=== PATIENT | male | born 1960 | race African-American/Black ===

== ENCOUNTER 2020-03-11 04:05 | Observation (INO) | payer OTHER ==
[2020-03-11 04:42] LABS: ABSOLUTE BASOPHILS # (AUTO) 0.1 10^3/uL (0.0-0.2); ABSOLUTE EOSINOPHILS # (AUTO) 0.4 10^3/uL (0.0-0.6); ABSOLUTE LYMPHOCYTES (AUTO) 2.8 10^3/uL (0.5-4.7); ABSOLUTE MONOCYTES (AUTO) 0.6 10^3/uL (0.1-1.4); ABSOLUTE NEUT (AUTO) 5.9 10^3/uL (1.7-8.2); BASOPHILS % (AUTO) 0.7 % (0-2); HEMATOCRIT 42.7 % (37.9-51.0); LYMPHOCYTES % (AUTO) 28.8 % (13-45); MEAN CORPUSCULAR HEMOGLOBIN 26.3 pg (27.0-33.4); MEAN CORPUSCULAR HGB CONC 32.7 g/dL (32.0-36.0); MEAN CORPUSCULAR VOLUME 80 fl (80-97); MONOCYTES % (AUTO) 6.5 % (3-13); PLATELET COUNT 381 10^3/uL (150-450); RED BLOOD COUNT 5.32 10^6/uL (4.35-5.55); RED CELL DISTRIBUTION WIDTH 15.4 % (11.5-14.0); TOTAL CELLS COUNTED % (AUTO) 100 %; WHITE BLOOD COUNT 9.8 10^3/uL (4.0-10.5)
--- NOTE | 2020-03-11 04:49 | RADIOLOGY REPORT (SQ) ---
CLINICAL INDICATION: chest pain. TECHNIQUE: A single portable AP view was obtained of the chest at 0433 hours. COMPARISON: None. FINDINGS: The cardiomediastinal silhouette is enlarged. The lungs demonstrate mild congestive change. No evidence of effusion or pneumothorax. The visualized bones are unremarkable. IMPRESSION: Enlarged cardiac silhouette. Mild congestive changes..
[2020-03-11 05:02] LABS: ALBUMIN 4.1 g/dL (3.5-5.0); ALKALINE PHOSPHATASE 50 U/L (38-126); ANION GAP 8 (5-19); ASPARTATE AMINO TRANSFERASE 23 U/L (17-59); BILIRUBIN,DIRECT 0.3 mg/dL (0.0-0.4); BILIRUBIN,TOTAL 0.6 mg/dL (0.2-1.3); BLOOD UREA NITROGEN 21 mg/dL (7-20); CALCIUM 9.2 mg/dL (8.4-10.2); CARBON DIOXIDE 25 mmol/L (22-30); CHLORIDE 106 mmol/L (98-107); CREATINE KINASE 89 U/L (55-170); GLUCOSE 144 mg/dL (75-110); TOTAL PROTEIN 7.5 g/dL (6.3-8.2)
[2020-03-11 05:05] LABS: POTASSIUM 4.3 mmol/L (3.6-5.0)
[2020-03-11 05:14] LABS: CREATINE KINASE MB 0.72 ng/mL (<4.55); TROPONIN I < 0.012 ng/mL
[2020-03-11 06:26] LABS: INTERNATIONAL RATION (INR) 1.05; PROTHROMBIN TIME 13.9 SEC (11.4-15.4)
[2020-03-11] MEDS ORDERED: ACETAMINOPHEN 325 MG TABLET PO ONE (07:51)
--- NOTE | 2020-03-11 08:10 | ER Document Report ---
Entered by AUSTIN HOLLAND SCRIBE 03/11/20 0627 Acting as scribe for:RENE YUN MD ED Respiratory Problem - General Chief Complaint: Chest Wall Pain Stated Complaint: CHEST PAIN Time Seen by Provider: 03/11/20 06:11 Mode of Arrival: Ambulatory Information source: Patient Notes: This 59-year-old male patient presents to the emergency department today with complaints of shortness of breath. Patient states he felt somewhat short of breath most of the night and randomly "jumped up out of the blue and asked his to call 911". He states he had a pressure in his chest and was very short of breath. When EMS arrived at the patient's residence he had a blood pressure 160/90, heart rate of 90 irregular, 99% pulse oximetry reading on room air. He was given 2 sublingual nitro which improved his breathing but did give him a headache. - Related Data Allergies/Adverse Reactions: No Known Allergies Allergy (Unverified 03/11/20 06:04) Past Medical History - General Information source: Patient - Social History Smoking Status: Never Smoker Cigarette use (# per day): No Frequency of alcohol use: None Drug Abuse: None Lives with: Family Family History: Reviewed & Not Pertinent Endocrine Medical History: Reports: Hx Diabetes Mellitus Type 2 Psychiatric Medical History: Reports: Hx Post Traumatic Stress Disorder Past Surgical History: Reports: Hx Abdominal Surgery - SBO, Hx Cholecystectomy, Hx Gastric Bypass Surgery - Sleeve, Hx Orthopedic Surgery - Left achilles, right ankle, Hx Testicular Surgery - left Review of Systems - Review of Systems Constitutional: No symptoms reported EENT: No symptoms reported Cardiovascular: See HPI, Other - chest pressure Respiratory: See HPI, Short of breath Gastrointestinal: No symptoms reported Genitourinary: No symptoms reported Male Genitourinary: No symptoms reported Musculoskeletal: No symptoms reported Skin: No symptoms reported Hematologic/Lymphatic: No symptoms reported Neurological/Psychological: See HPI, Headaches -: Yes All other systems reviewed and negative Physical Exam - Vital signs Vitals: Resp Pulse Ox 26 H 99 03/11/20 04:05 03/11/20 04:05 - Notes Notes: Physical Exam: General: Alert, appears short of breath. Wearing a surgical mask, nasal cannula is in but not on, room air oxygen saturation of 99%. HEENT: Normocephalic. Atraumatic. PERRL. Extraocular movements intact. Oropharynx clear. Neck: Supple. Non-tender. Respiratory: No respiratory distress. Distant but clear and equal breath sounds bilaterally. Cardiovascular: Occasional irregular beat, not tachycardic. Abdominal: Obese. Non-tender. No distension. Normal Bowel Sounds. Back: No gross abnormalities. Extremities: Moves all four extremities. Upper extremities: Normal inspection. Normal ROM. Lower extremities: Normal inspection. No edema. Normal ROM. Neurological: Normal cognition. AAOx4. Normal speech. Psychological: Normal affect. Normal Mood. Skin: Warm. Dry. Normal color. Course - Re-evaluation Re-evalutation: 03/11/20 11:25 I discussed the patient with Dr. Larios who wanted to do a cardiac stress test today. He had me talk with Dr. De Santiago who informed me that he is not on- call today and has a full office so would not be able to do the stress test until tomorrow. I talked with Dr. Larios about that and he agreed to bring the patient in on observation admission and get him stressed tomorrow. 03/11/20 14:01 The patient was evaluated during the global COVID-19 pandemic and that diagnosis was suspected/considered upon their initial presentation. Their evaluation, treatment and testing was consistent with current guidelines for patients who present with complaints or symptoms that may be related to COVID-19. - Vital Signs Vital signs: Temp Pulse Resp BP Pulse Ox 98.4 F 10 L 151/87 H 100 03/11/20 11:01 03/11/20 13:02 03/11/20 13:02 03/11/20 13:02 - Laboratory Result Diagrams: 03/11/20 04:20 03/11/20 04:20 Laboratory results interpreted by me: 03/11/20 03/11/20 04:20 04:20 MCH 26.3 L RDW 15.4 H BUN 21 H Glucose 144 H - Diagnostic Test Radiology reviewed: Image reviewed, Reports reviewed - Chest x-ray showed enlarged heart with mild congestive changes - EKG Interpretation by Me EKG shows normal: Sinus rhythm, [place], Intervals, QRS Complexes. abnormal: ST-T Waves - Borderline T abnormalities Rate: Normal - 90 Rhythm: NSR, PVC's - Consults Dr. Osorio Time consulted: 11:20 Consulted provider: will come to ER Discharge - Discharge Clinical Impression: Chest pain at rest, Anginal equivalent Dyspnea Qualifiers: Dyspnea type: unspecified Qualified Code(s): R06.00 - Dyspnea, unspecified Disposition: ADMITTED OBSERVATION Admitting Provider: Jo (Hospitalist) Unit Admitted: Telemetry I personally performed the services described in the documentation, reviewed and edited the documentation which was dictated to the scribe in my presence, and it accurately records my words and actions.
[2020-03-11] MEDS ORDERED: ONDANSETRON HCL INJ/PF 4 MG/2 ML SDV IV PRN (17:56)
[2020-03-11] MEDS ORDERED: ACETAMINOPHEN 325 MG TABLET PO PRN (17:56)
[2020-03-11] MEDS ORDERED: ALBUTEROL SULFATE 0.083% NEB 2.5 MG/3 ML AMPUL NEB PRN (17:56)
[2020-03-11] MEDS ORDERED: DEXTROSE 40% GEL 15 GM TUBE PO PRN ×2 (17:56)
[2020-03-11] MEDS ORDERED: ONDANSETRON 4 MG TAB.RAPDIS PO PRN (17:56)
[2020-03-11] MEDS ORDERED: DEXTROSE 50%-WATER 25 GM/50 ML DISP.SYRIN IV PRN ×2 (17:56)
[2020-03-11] MEDS ORDERED: GLUCAGON,HUMAN RECOMB 1 MG INJ SUBCUT PRN (17:56)
[2020-03-11] MEDS ORDERED: (PENDING PHARMACY ID) (Ipratropium Bromide [Ipratropium Bromide] 2 SPRAY) NS SCH (18:00)
[2020-03-11] MEDS ORDERED: DICLOFENAC SODIUM TOP PRN (18:00)
[2020-03-11] MEDS ORDERED: LIDOCAINE TP PRN (18:00)
[2020-03-11] MEDS ORDERED: (PENDING PHARMACY ID) (Lactulose [Lactulose] 30 ML) PO PRN (18:00)
--- NOTE | 2020-03-11 18:09 | ADVANCED CARE ---
- Diagnosis (1) Chest pain at rest Diagnosis Current: Yes (2) T2DM (type 2 diabetes mellitus) Diagnosis Current: Yes (3) HTN (hypertension) Diagnosis Current: Yes (4) HLD (hyperlipidemia) Diagnosis Current: Yes (5) Morbid obesity Diagnosis Current: Yes (6) PTSD (post-traumatic stress disorder) Diagnosis Current: Yes (7) Dyspnea Diagnosis Current: Yes Attendance: Patient Resuscitation Status: Full Code Discussion: All aspects of code status discussed with patient/POA including cardioversion, chest compressions, and intubation and the patient/POA indicated they wish to be full code MPOA is designated as: Kierra Silverio Time Spent: Greater than 16 minutes
--- NOTE | 2020-03-11 18:09 | PDOC H&P ---
History of Present Illness Admission Date/PCP: 03/11/20 12:01 [facility] History of Present Illness: MORENO KWONG JR is a 59 year old male with past medical history significant for HTN, T2DM, HLD, PTSD, morbid obesity who presents with 1 day history of progressive substernal chest pain/pressure and shortness of breath/LAWSON which patient states is no and has not occurred in the past to this degree. Patient states it awoke him from sleep and he was unable to catch his breath despite wearing his usual CPAP he wears while sleeping. Patient denies any recent illness or fever/chills or coronavirus contacts. Patient states he has had a nuclear stress test many years ago which was normal. Patient states his symptoms today did not feel like a panic attack which she has experienced in the past many times. Cardiology was consulted on admission and they plan to have a Cardiolite stress test in the morning which will likely be done in 2 separate portions over the next 2 days in order to get adequate imaging in the setting of severe obesity in order to rule out severe CAD. Patient's pain was relieved by 2 doses of nitroglycerin prior to admission. Chest x-ray did not show any acute abnormalities and troponins have been negative. Past Medical History Cardiac Medical History: Reports: Hyperlipidema, Hypertension Endocrine Medical History: Reports: Diabetes Mellitus Type 2, Obesity Psychiatric Medical History: Reports: Post Traumatic Stress Disorder Past Surgical History Past Surgical History: Reports: Cholecystectomy, Gastric Bypass Surgery - Sleeve, Orthopedic Surgery - Left achilles, right ankle Social History Information Source: Patient, Emergency Med Personnel Lives with: Family Smoking Status: Never Smoker Frequency of Alcohol Use: Occasional Hx Prescription Drug Abuse: No - Advance Directive Resuscitation Status: Full Code Surrogate healthcare decision maker:: , Nusrat Family History Family History: Reviewed & Not Pertinent, Malignancy Parental Family History Reviewed: Yes Children Family History Reviewed: Yes Sibling(s) Family History Reviewed.: Yes Medication/Allergy Home Medications: Amlodipine Besylate [Norvasc 5 mg Tablet] 2.5 mg PO DAILY 03/11/20 Atorvastatin Calcium [Lipitor 80 mg Tablet] 40 mg PO QHS 03/11/20 Calcium Citrate 1,200 mg PO DAILY 03/11/20 Diclofenac Sodium 1 applic TP QIDP PRN 03/11/20 Fluticasone Propionate [Flonase Nasal Rawlings 50 Mcg/Rawlings 16 gm] 1 spray NASL DAILY 03/11/20 Ipratropium Gary 2 spray NS QPM 03/11/20 Lactulose 30 ml PO DAILYP PRN 03/11/20 Lidocaine/Transparent Dressing [Lidocaine 4% Kit] 1 each TP TIDP PRN 03/11/20 Loratadine [Claritin 10 mg Tablet] 10 mg PO DAILY 03/11/20 Lurasidone HCl [Latuda] 40 mg PO DAILY 03/11/20 Metformin HCl [Glucophage 850 mg Tablet] 850 mg PO BID 03/11/20 Omeprazole 20 mg PO DAILY 03/11/20 Prazosin HCl [Minipress] 4 mg PO QHS 03/11/20 Zolpidem Tartrate [Ambien 5 mg Tablet] 5 mg PO QHS 03/11/20 Allergies/Adverse Reactions: No Known Allergies Allergy (Unverified 03/11/20 06:04) Review of Systems All systems: reviewed and no additional remarkable complaints except as stated - Review systems per HPI, otherwise negative Physical Exam Vital Signs: Temp Pulse Resp BP Pulse Ox 98.1 F 17 146/89 H 100 03/11/20 16:01 03/11/20 17:01 03/11/20 16:01 03/11/20 17:01 Intake & Output 03/10/20 03/11/20 03/12/20 06:59 06:59 06:59 Weight 174.633 kg General appearance: PRESENT: no acute distress, morbidly obese, well-developed, well-nourished Head exam: PRESENT: atraumatic, normocephalic Eye exam: PRESENT: conjunctiva pink. ABSENT: scleral icterus Mouth exam: PRESENT: moist Respiratory exam: PRESENT: clear to auscultation danny. ABSENT: rales, rhonchi, wheezes Cardiovascular exam: PRESENT: RRR. ABSENT: diastolic murmur, rubs, systolic murmur GI/Abdominal exam: PRESENT: normal bowel sounds, soft. ABSENT: distended, guarding, mass, organolmegaly, rebound, tenderness Rectal exam: PRESENT: deferred Neurological exam: PRESENT: alert, awake, oriented to person, oriented to place, oriented to time, oriented to situation Psychiatric exam: PRESENT: appropriate affect, normal mood Skin exam: PRESENT: dry, intact, warm Results Laboratory Results: 03/11/20 04:20 03/11/20 04:20 03/11/20 03/11/20 03/11/20 04:20 04:20 04:20 WBC 9.8 RBC 5.32 Hgb 14.0 Hct 42.7 MCV 80 MCH 26.3 L MCHC 32.7 RDW 15.4 H Plt Count 381 Seg Neutrophils % 60.0 Sodium 139.1 Potassium 4.3 Chloride 106 Carbon Dioxide 25 Anion Gap 8 BUN 21 H Creatinine 0.97 Est GFR ( Amer) > 60 Glucose 144 H Calcium 9.2 Magnesium 2.3 Total Bilirubin 0.6 AST 23 Alkaline Phosphatase 50 Total Protein 7.5 Albumin 4.1 03/11/20 03/11/20 03/11/20 04:20 04:20 04:20 Creatine Kinase 89 CK-MB (CK-2) 0.72 Troponin I < 0.012 NT-Pro-B Natriuret Pep 44 03/11/20 07:45 Creatine Kinase CK-MB (CK-2) Troponin I < 0.012 NT-Pro-B Natriuret Pep Impressions: Chest X-Ray 03/11/20 04:06 IMPRESSION: Enlarged cardiac silhouette. Mild congestive changes.. Assessment and Plan - Diagnosis (1) Chest pain at rest Is this a current diagnosis for this admission?: Yes Plan: Multiple risk factors including severe obesity, HTN, T2DM, HLD Chest pain relieved by 2 doses of nitroglycerin prior to admission Chest x-ray no acute findings Troponin negative x2, trending Cardiology consulted: Cardiolite stress test in a.m. in 2 parts due to obesity N.p.o. midnight (2) T2DM (type 2 diabetes mellitus) Qualifiers: Diabetes mellitus shelter insulin use: without manager intermediate use Diabetes mellitus complication status: without complication Qualified Code(s): E11.9 - Type 2 diabetes mellitus without complications Is this a current diagnosis for this admission?: Yes Plan: Hold orals Sliding scale insulin, Accu-Cheks A1c (3) HTN (hypertension) Is this a current diagnosis for this admission?: Yes Plan: Home medications continued (4) HLD (hyperlipidemia) Is this a current diagnosis for this admission?: Yes Plan: Statin (5) Morbid obesity Is this a current diagnosis for this admission?: Yes Plan: Counseled on weight loss (6) PTSD (post-traumatic stress disorder) Is this a current diagnosis for this admission?: Yes Plan: Psychiatric medications continued (7) Dyspnea Qualifiers: Dyspnea type: unspecified Qualified Code(s): R06.00 - Dyspnea, unspecified Is this a current diagnosis for this admission?: Yes Plan: As above - Time Time Spent with patient: 35 or more minutes Medications reviewed and adjusted accordingly: Yes Anticipated Discharge Disposition: Home, Self Care Anticipated Discharge Timeframe: within 48 hours
[2020-03-11] MEDS ORDERED: LACTULOSE SYRUP 20 GM/30 ML UDCUP PO PRN (18:25)
[2020-03-11] MEDS ORDERED: LIDOCAINE 4% CREAM 5 GM TUBE TP PRN (18:30)
[2020-03-11] MEDS ORDERED: LIDOCAINE TOP PRN (18:50)
[2020-03-11] MEDS ORDERED: PRAZOSIN HCL 4 MG PO SCH (22:00)
[2020-03-11] MEDS ORDERED: ATORVASTATIN CALCIUM 80 MG TABLET PO SCH (22:00)
[2020-03-11] MEDS: ATORVASTATIN CALCIUM 40 MG TABLET PO SCH (22:05)
[2020-03-11] MEDS: ZOLPIDEM TARTRATE 5 MG TABLET PO SCH (22:05)
[2020-03-12] MEDS ORDERED: GLUCAGON,HUMAN RECOMB 1 MG INJ SUBCUT PRN (04:34)
[2020-03-12] MEDS ORDERED: DEXTROSE 50%-WATER 25 GM/50 ML DISP.SYRIN IV PRN ×2 (04:34)
[2020-03-12] MEDS ORDERED: DEXTROSE 40% GEL 15 GM TUBE PO PRN ×2 (04:34)
[2020-03-12 06:33] LABS: ABSOLUTE EOSINOPHILS # (AUTO) 0.3 10^3/uL (0.0-0.6); ABSOLUTE LYMPHOCYTES (AUTO) 2.6 10^3/uL (0.5-4.7); ABSOLUTE MONOCYTES (AUTO) 0.5 10^3/uL (0.1-1.4); ABSOLUTE NEUT (AUTO) 4.8 10^3/uL (1.7-8.2); BASOPHILS % (AUTO) 0.5 % (0-2); EOSINOPHILS % (AUTO) 3.2 % (0-6); HEMATOCRIT 38.8 % (37.9-51.0); HEMOGLOBIN 12.9 g/dL (13.5-17.0); LYMPHOCYTES % (AUTO) 31.6 % (13-45); MEAN CORPUSCULAR HEMOGLOBIN 26.6 pg (27.0-33.4); MEAN CORPUSCULAR HGB CONC 33.4 g/dL (32.0-36.0); MEAN CORPUSCULAR VOLUME 80 fl (80-97); MONOCYTES % (AUTO) 5.6 % (3-13); PLATELET COUNT 361 10^3/uL (150-450); RED BLOOD COUNT 4.87 10^6/uL (4.35-5.55); RED CELL DISTRIBUTION WIDTH 15.3 % (11.5-14.0); SEGMENTED NEUTROPHILS % (AUTO) 59.1 % (42-78); TOTAL CELLS COUNTED % (AUTO) 100 %; WHITE BLOOD COUNT 8.1 10^3/uL (4.0-10.5)
[2020-03-12 06:52] LABS: ANION GAP 9 (5-19); BLOOD UREA NITROGEN 20 mg/dL (7-20); CALCIUM 9.4 mg/dL (8.4-10.2); CARBON DIOXIDE 25 mmol/L (22-30); CHLORIDE 104 mmol/L (98-107); CHOLESTEROL 200.81 mg/dL (0-200); GLUCOSE 121 mg/dL (75-110); PHOSPHORUS 4.5 mg/dL (2.5-4.5); POTASSIUM 4.7 mmol/L (3.6-5.0); TRIGLYCERIDES 170 mg/dL (<150)
[2020-03-12 07:02] LABS: DIRECT LDL 125 mg/dL (<100)
[2020-03-12] MEDS: INSULIN LISPRO 100 UNIT/ML 3 ML VIAL SUBCUT SCH ×4 (07:57→21:05)
[2020-03-12] MEDS: ENOXAPARIN SODIUM INJ 40 MG/0.4 ML DISP.SYRIN SUBCUT SCH ×2 (07:57→09:03)
[2020-03-12] MEDS: PANTOPRAZOLE SODIUM 20 MG TABLET.DR PO SCH (07:57)
[2020-03-12] MEDS: LORATADINE 10 MG TABLET PO SCH (09:02)
[2020-03-12] MEDS: LURASIDONE HCL 40 MG TABLET PO SCH (09:02)
[2020-03-12] MEDS: FLUTICASONE NASAL SPRAY 50 MCG/SPRY 120 SPRAY/16 GM NASL SCH (09:02)
[2020-03-12] MEDS: DOCUSATE SODIUM 100 MG CAPSULE PO SCH (09:02)
[2020-03-12] MEDS: CALCIUM CARBONATE 600 MG TABLET PO SCH (09:02)
[2020-03-12] MEDS: AMLODIPINE BESYLATE 2.5 MG TABLET PO SCH (09:03)
[2020-03-12] MEDS ORDERED: CALCIUM CITRATE 1200 MG PO SCH (10:00)
[2020-03-12] MEDS ORDERED: (PENDING PHARMACY ID) (Lurasidone Hcl [Latuda] 40 MG) PO SCH (10:00)
[2020-03-12] MEDS ORDERED: AMLODIPINE BESYLATE 5 MG TABLET PO SCH (10:00)
[2020-03-12] MEDS ORDERED: REGADENOSON INJ 0.4 MG/5 ML DISP.SYRIN IV ONE (13:21)
--- NOTE | 2020-03-12 17:13 | PDOC PROGRESS REPORT ---
Subjective Subjective:: MORENO KWONG JR is a 59 year old male with past medical history significant for HTN, T2DM, HLD, PTSD, morbid obesity who presents with 1 day history of progressive substernal chest pain/pressure and shortness of breath/LAWSON which patient states is no and has not occurred in the past to this degree. Patient states it awoke him from sleep and he was unable to catch his breath despite wearing his usual CPAP he wears while sleeping. Patient denies any recent illness or fever/chills or coronavirus contacts. Patient states he has had a nuclear stress test many years ago which was normal. Patient states his symptoms today did not feel like a panic attack which she has experienced in the past many times. Cardiology was consulted on admission and they plan to have a Cardiolite stress test in the morning which will likely be done in 2 separate portions over the next 2 days in order to get adequate imaging in the setting of severe obesity in order to rule out severe CAD. Patient's pain was relieved by 2 doses of nitroglycerin prior to admission. Chest x-ray did not show any acute abnormalities and troponins have been negative. 03/12/2020 Patient underwent stress test with Cardiolite today. I discussed the results with cardiology and they stated patient will need to stay for another round of imaging tomorrow as his inferior wall had a potential abnormality which could not be fully assessed on today's imaging. Patient's body habitus is very challenging to get good imaging. Troponin has remained negative after multiple rechecks. Patient has notable hyperlipidemia despite being on rather high-dose atorvastatin. Patient does not have any chest pain today and states he overall feels well. He has no new complaints today. Reason For Visit: CHEST PAIN, T2DM Physical Exam Vital Signs: Temp Pulse Resp BP Pulse Ox 98.1 F 64 16 148/90 H 99 03/12/20 11:32 03/12/20 14:00 03/12/20 11:32 03/12/20 11:32 03/12/20 11:32 Intake & Output 03/11/20 03/12/20 03/13/20 06:59 06:59 06:59 Intake Total 140 Balance 140 Weight 174.633 kg 175 kg Exam: General appearance: PRESENT: no acute distress, morbidly obese, well-developed, well-nourished, states he does not have chest pain today Head exam: PRESENT: atraumatic, normocephalic Eye exam: PRESENT: conjunctiva pink. ABSENT: scleral icterus Mouth exam: PRESENT: moist Respiratory exam: PRESENT: clear to auscultation danny. ABSENT: rales, rhonchi, wheezes Cardiovascular exam: PRESENT: RRR. ABSENT: diastolic murmur, rubs, systolic murmur GI/Abdominal exam: PRESENT: normal bowel sounds, soft. ABSENT: distended, gu arding, mass, organolmegaly, rebound, tenderness Rectal exam: PRESENT: deferred Neurological exam: PRESENT: alert, awake, oriented to person, oriented to place, oriented to time, oriented to situation Psychiatric exam: PRESENT: appropriate affect, normal mood Skin exam: PRESENT: dry, intact, warm Results Laboratory Results: 03/12/20 05:40 03/12/20 05:40 03/12/20 03/12/20 03/12/20 05:40 05:40 05:40 WBC 8.1 RBC 4.87 Hgb 12.9 L Hct 38.8 MCV 80 MCH 26.6 L MCHC 33.4 RDW 15.3 H Plt Count 361 Seg Neutrophils % 59.1 Sodium 138.3 Potassium 4.7 Chloride 104 Carbon Dioxide 25 Anion Gap 9 BUN 20 Creatinine 0.84 Est GFR ( Amer) > 60 Glucose 121 H Calcium 9.4 Phosphorus 4.5 Magnesium 2.2 Triglycerides 170 H Cholesterol 200.81 H LDL Cholesterol Direct 125 H VLDL Cholesterol 34.0 H HDL Cholesterol 32 L TSH 1.15 03/11/20 03/11/20 03/11/20 04:20 04:20 04:20 Creatine Kinase 89 CK-MB (CK-2) 0.72 Troponin I < 0.012 NT-Pro-B Natriuret Pep 44 03/11/20 03/11/20 03/12/20 07:45 18:35 00:14 Creatine Kinase CK-MB (CK-2) Troponin I < 0.012 < 0.012 < 0.012 NT-Pro-B Natriuret Pep Impressions: Chest X-Ray 03/11/20 04:06 IMPRESSION: Enlarged cardiac silhouette. Mild congestive changes.. Assessment and Plan - Diagnosis (1) Chest pain at rest Is this a current diagnosis for this admission?: Yes Plan: Multiple risk factors including severe obesity, HTN, T2DM, HLD Chest pain relieved by 2 doses of nitroglycerin prior to admission Chest x-ray no acute findings Troponin negative x2, trending Cardiology consulted: Cardiolite stress test in a.m. in 2 parts due to obesity; initial results equivocal, had to stay for second part next day N.p.o. midnight Chest pain resolved (2) T2DM (type 2 diabetes mellitus) Qualifiers: Diabetes mellitus terminal operator insulin use: without terminal operator use Diabetes mellitus complication status: without complication Qualified Code(s): E11.9 - Type 2 diabetes mellitus without complications Is this a current diagnosis for this admission?: Yes (3) HTN (hypertension) Is this a current diagnosis for this admission?: Yes (4) HLD (hyperlipidemia) Is this a current diagnosis for this admission?: Yes (5) Morbid obesity Is this a current diagnosis for this admission?: Yes (6) PTSD (post-traumatic stress disorder) Is this a current diagnosis for this admission?: Yes (7) Dyspnea Qualifiers: Dyspnea type: unspecified Qualified Code(s): R06.00 - Dyspnea, unspecified Is this a current diagnosis for this admission?: Yes - Time Time Spent with patient: 15-24 minutes Medications reviewed and adjusted accordingly: Yes Anticipated Discharge Disposition: Home, Self Care Anticipated Discharge Timeframe: within 24 hours
[2020-03-12] MEDS ORDERED: IPRATROPIUM BROMIDE 0.06% NASAL SPRAY 15 ML NASL SCH (18:00)
[2020-03-12] MEDS: ZOLPIDEM TARTRATE 5 MG TABLET PO SCH (21:35)
[2020-03-12] MEDS: ATORVASTATIN CALCIUM 40 MG TABLET PO SCH (21:35)
[2020-03-13 07:06] LABS: ABSOLUTE BASOPHILS # (AUTO) 0.1 10^3/uL (0.0-0.2); ABSOLUTE EOSINOPHILS # (AUTO) 0.3 10^3/uL (0.0-0.6); ABSOLUTE LYMPHOCYTES (AUTO) 2.6 10^3/uL (0.5-4.7); ABSOLUTE MONOCYTES (AUTO) 0.5 10^3/uL (0.1-1.4); ABSOLUTE NEUT (AUTO) 4.6 10^3/uL (1.7-8.2); BASOPHILS % (AUTO) 0.8 % (0-2); EOSINOPHILS % (AUTO) 3.7 % (0-6); HEMATOCRIT 38.9 % (37.9-51.0); LYMPHOCYTES % (AUTO) 32.1 % (13-45); MEAN CORPUSCULAR HEMOGLOBIN 26.5 pg (27.0-33.4); MEAN CORPUSCULAR HGB CONC 33.5 g/dL (32.0-36.0); MEAN CORPUSCULAR VOLUME 79 fl (80-97); MONOCYTES % (AUTO) 6.6 % (3-13); PLATELET COUNT 342 10^3/uL (150-450); RED BLOOD COUNT 4.91 10^6/uL (4.35-5.55); RED CELL DISTRIBUTION WIDTH 15.2 % (11.5-14.0); SEGMENTED NEUTROPHILS % (AUTO) 56.8 % (42-78); TOTAL CELLS COUNTED % (AUTO) 100 %; WHITE BLOOD COUNT 8.1 10^3/uL (4.0-10.5)
[2020-03-13 07:29] LABS: ANION GAP 7 (5-19); BLOOD UREA NITROGEN 16 mg/dL (7-20); CALCIUM 9.1 mg/dL (8.4-10.2); CARBON DIOXIDE 28 mmol/L (22-30); CHLORIDE 104 mmol/L (98-107); GLUCOSE 119 mg/dL (75-110); POTASSIUM 4.3 mmol/L (3.6-5.0)
[2020-03-13] MEDS: INSULIN LISPRO 100 UNIT/ML 3 ML VIAL SUBCUT SCH ×2 (08:50→12:46)
[2020-03-13] MEDS: PANTOPRAZOLE SODIUM 20 MG TABLET.DR PO SCH (08:51)
[2020-03-13] MEDS: ENOXAPARIN SODIUM INJ 40 MG/0.4 ML DISP.SYRIN SUBCUT SCH (10:22)
[2020-03-13] MEDS: CALCIUM CARBONATE 600 MG TABLET PO SCH (10:22)
[2020-03-13] MEDS: LURASIDONE HCL 40 MG TABLET PO SCH (10:22)
[2020-03-13] MEDS: AMLODIPINE BESYLATE 2.5 MG TABLET PO SCH (10:22)
[2020-03-13] MEDS: DOCUSATE SODIUM 100 MG CAPSULE PO SCH (10:22)
[2020-03-13] MEDS: LORATADINE 10 MG TABLET PO SCH (10:22)
[2020-03-13] MEDS: FLUTICASONE NASAL SPRAY 50 MCG/SPRY 120 SPRAY/16 GM NASL SCH (10:25)
--- NOTE | 2020-03-13 12:05 | DRAGON STRESS TEST REPORT ---
2 Day Intravenous Lexiscan Cardiolite stress test using single photon emmision computerized tomography. Date of Stress procedure: 03/12/2020. Date of Resting procedure: 03/13/2020.Ordering Provider: Dr. Osorio. Patient Status: Inpatient. Indication: Chest pain. Coronary risk factors: Age, hypertension, diabetes mellitus, and dyslipidemia. Resting EKG: Sinus Rhythm. Nonspecific T changes inferior and apical lateral leads. Stress EKG: No changes of ischemia. The patient had no chest pain or discomfort. There was no arrhythmias seen. Reason for termination: Protocol. Conclusions: Normal EKG and hemodynamic response to IV Lexiscan. Nuclear data: On 03/12/2020, the patient was given intravenous Lexiscan at a dose of 0.4 mg in 5 mL intravenously, followed by flush with normal saline. Subsequently the stress dose of 43.4 millicuries of technetium 99m sestamibi was injected intravenously. As per protocol stress gated images were obtained. On 03/13/2020 at rest the patient was given 43.1 millicuries of technetium 99m sestamibi injected intravenously. As per protocol rest non gated SPECT images were obtained. Nuclear interpretation: Review of images showed that there was liver and diaphragmatic contamination artifact of the inferior wall in both the rest and stress images. There was a perfusion defect in both the rest and stress images which is relatively unchanged, involving the inferior wall. This area had normal motion contraction and thickening by gated study. Hence this is soft tissue attenuation artifact. The rest of the segments of the myocardium had normal perfusion at rest, and normal perfusion post stress with IV Lexiscan. All segments of the myocardium had normal motion, contraction, and thickening by gated study. T. I D. ratio was normal at 0.98. Computer read rest, and stress left ventricular ejection fraction were 57%, and 51%, respectively. Visually both the stress and rest ejection fractions were normal, and greater than 55%. Conclusion: 1. There is no scintigraphic evidence of Lexiscan induced myocardial ischemia. 2. There is no scintigraphic evidence of myocardial infarction/scar. 3. There is soft tissue attenuation artifact of the inferior wall. Recommendations: Aggressive risk factor modification, and treating the underlying co- morbidities. [facility]
[2020-03-13 12:50] VITALS: BP 139/57
--- NOTE | 2020-03-13 13:02 | PDOC DISCHARGE SUMMARY ---
Impression - Admit/DC Date/PCP Admission Date/Primary Care Provider: 03/11/20 12:01 [facility] Discharge Date: 03/13/20 - Discharge Diagnosis (1) Chest pain at rest Is this a current diagnosis for this admission?: Yes (2) T2DM (type 2 diabetes mellitus) Is this a current diagnosis for this admission?: Yes (3) HTN (hypertension) Is this a current diagnosis for this admission?: Yes (4) HLD (hyperlipidemia) Is this a current diagnosis for this admission?: Yes (5) Morbid obesity Is this a current diagnosis for this admission?: Yes (6) PTSD (post-traumatic stress disorder) Is this a current diagnosis for this admission?: Yes (7) Dyspnea Is this a current diagnosis for this admission?: Yes - Additional Information Resuscitation Status: Full Code Discharge Diet: Other (Comments) - Vegan Discharge Activity: Activity As Tolerated, Balance Activity w/Rest [facility] [[facility]] - Follow up as needed Home Medications: Amlodipine Besylate [Norvasc 5 mg Tablet] 2.5 mg PO DAILY 03/11/20 Atorvastatin Calcium [Lipitor 80 mg Tablet] 40 mg PO QHS 03/11/20 Calcium Citrate 1,200 mg PO DAILY 03/11/20 Diclofenac Sodium 1 applic TP QIDP PRN 03/11/20 Fluticasone Propionate [Flonase Nasal [place] 50 Mcg/[place] 16 gm] 1 spray NASL DAILY 03/11/20 Ipratropium [place] 2 spray NS QPM 03/11/20 Lactulose 30 ml PO DAILYP PRN 03/11/20 Lidocaine [Xylocaine 4% Cream 15 gm (Clinic Use Only)] 1 applic TOP TIDP PRN 03/11/20 Loratadine [Claritin 10 mg Tablet] 10 mg PO DAILY 03/11/20 Lurasidone HCl [Latuda] 40 mg PO DAILY 03/11/20 Metformin HCl [Glucophage 850 mg Tablet] 850 mg PO BID 03/11/20 Omeprazole 20 mg PO DAILY 03/11/20 Prazosin HCl [Minipress] 4 mg PO QHS 03/11/20 Zolpidem Tartrate [Ambien 5 mg Tablet] 5 mg PO QHS 03/11/20 History of Present Illiness History of Present Illness: MOERNO KWONG JR is a 59 year old male with past medical history significant for HTN, T2DM, HLD, PTSD, morbid obesity who presents with 1 day history of progressive substernal chest pain/pressure and shortness of breath/LAWSON which patient states is no and has not occurred in the past to this degree. Patient states it awoke him from sleep and he was unable to catch his breath despite wearing his usual CPAP he wears while sleeping. Patient denies any recent illness or fever/chills or coronavirus contacts. Patient states he has had a nuclear stress test many years ago which was normal. Patient states his symptoms today did not feel like a panic attack which she has experienced in the past many times. Cardiology was consulted on admission and they plan to have a Cardiolite stress test in the morning which will likely be done in 2 separate portions over the next 2 days in order to get adequate imaging in the setting of severe obesity in order to rule out severe CAD. Patient's pain was relieved by 2 doses of nitroglycerin prior to admission. Chest x-ray did not show any acute abnormalities and troponins have been negative. Hospital Course Hospital Course: MORENO KWONG JR is a 59 year old male with past medical history significant for HTN, T2DM, HLD, PTSD, morbid obesity who presents with 1 day history of progressive substernal chest pain/pressure and shortness of breath/LAWSON which patient states is no and has not occurred in the past to this degree. Patient states it awoke him from sleep and he was unable to catch his breath despite wearing his usual CPAP he wears while sleeping. Patient denies any recent illness or fever/chills or coronavirus contacts. Patient states he has had a nuclear stress test many years ago which was normal. Patient states his symptoms today did not feel like a panic attack which she has experienced in the past many times. Cardiology was consulted on admission and they plan to have a Cardiolite stress test in the morning which will likely be done in 2 separate portions over the next 2 days in order to get adequate imaging in the setting of severe obesity in order to rule out severe CAD. Patient's pain was relieved by 2 doses of nitroglycerin prior to admission. Chest x-ray did not show any acute abnormalities and troponins have been negative. 03/12/2020 Patient underwent stress test with Cardiolite today. I discussed the results with cardiology and they stated patient will need to stay for another round of imaging tomorrow as his inferior wall had a potential abnormality which could not be fully assessed on today's imaging. Patient's body habitus is very challenging to get good imaging. Troponin has remained negative after multiple rechecks. Patient has notable hyperlipidemia despite being on rather high-dose atorvastatin. Patient does not have any chest pain today and states he overall feels well. He has no new complaints today. Nuclear stress test part 2 resulted showing soft tissue artifact but it did not look like reversible ischemia per Dr. De Santiago. Patient cleared by cardiology to be discharged home. Vegan diet discussed with patient and he is amenable to considering this lifestyle change. Home medications continued. Follow-up with PCP. (1) Chest pain at rest Is this a current diagnosis for this admission?: Yes Plan: Multiple risk factors including severe obesity, HTN, T2DM, HLD Chest pain relieved by 2 doses of nitroglycerin prior to admission Chest x-ray no acute findings Troponin negative x2 Cardiology consulted: Cardiolite stress test in a.m. in 2 parts negative for ischemia N.p.o. midnight Chest pain resolved (2) T2DM (type 2 diabetes mellitus) Qualifiers: Diabetes mellitus termite inspector insulin use: without fci use Diabetes mellitus complication status: without complication Qualified Code(s): E11.9 - Type 2 diabetes mellitus without complications Is this a current diagnosis for this admission?: Yes (3) HTN (hypertension) Is this a current diagnosis for this admission?: Yes (4) HLD (hyperlipidemia) Is this a current diagnosis for this admission?: Yes (5) Morbid obesity Is this a current diagnosis for this admission?: Yes (6) PTSD (post-traumatic stress disorder) Is this a current diagnosis for this admission?: Yes (7) Dyspnea Qualifiers: Dyspnea type: unspecified Qualified Code(s): R06.00 - Dyspnea, unspecified Is this a current diagnosis for this admission?: Yes Physical Exam Vital Signs: Temp Pulse Resp BP Pulse Ox 98.0 F 64 17 139/57 H 97 03/13/20 12:48 03/13/20 12:48 03/13/20 12:48 03/13/20 12:48 03/13/20 12:48 Intake & Output 03/12/20 03/13/20 03/14/20 06:59 06:59 06:59 Intake Total 140 740 Balance 140 740 Weight 175 kg 175 kg Exam: General appearance: PRESENT: no acute distress, morbidly obese, well-developed, well-nourished, states he feels well and would like to go home Head exam: PRESENT: atraumatic, normocephalic Eye exam: PRESENT: conjunctiva pink. ABSENT: scleral icterus Mouth exam: PRESENT: moist Respiratory exam: PRESENT: clear to auscultation danny. ABSENT: rales, rhonchi, wheezes Cardiovascular exam: PRESENT: RRR. ABSENT: diastolic murmur, rubs, systolic murmur GI/Abdominal exam: PRESENT: normal bowel sounds, soft. ABSENT: distended, guarding, mass, organolmegaly, rebound, tenderness Rectal exam: PRESENT: deferred Neurological exam: PRESENT: alert, awake, oriented to person, oriented to place, oriented to time, oriented to situation Psychiatric exam: PRESENT: appropriate affect, normal mood Skin exam: PRESENT: dry, intact, warm Results Laboratory Results: WBC 8.1 10^3/uL (4.0-10.5) 03/13/20 06:40 RBC 4.91 10^6/uL (4.35-5.55) 03/13/20 06:40 Hgb 13.0 g/dL (13.5-17.0) L 03/13/20 06:40 Hct 38.9 % (37.9-51.0) 03/13/20 06:40 MCV 79 fl (80-97) L 03/13/20 06:40 MCH 26.5 pg (27.0-33.4) L 03/13/20 06:40 MCHC 33.5 g/dL (32.0-36.0) 03/13/20 06:40 RDW 15.2 % (11.5-14.0) H 03/13/20 06:40 Plt Count 342 10^3/uL (150-450) 03/13/20 06:40 Lymph % (Auto) 32.1 % (13-45) 03/13/20 06:40 [place] % (Auto) 6.6 % (3-13) 03/13/20 06:40 Eos % (Auto) 3.7 % (0-6) 03/13/20 06:40 Baso % (Auto) 0.8 % (0-2) 03/13/20 06:40 Absolute Neuts (auto) 4.6 10^3/uL (1.7-8.2) 03/13/20 06:40 Absolute Lymphs (auto) 2.6 10^3/uL (0.5-4.7) 03/13/20 06:40 Absolute Monos (auto) 0.5 10^3/uL (0.1-1.4) 03/13/20 06:40 Absolute Eos (auto) 0.3 10^3/uL (0.0-0.6) 03/13/20 06:40 Absolute Basos (auto) 0.1 10^3/uL (0.0-0.2) 03/13/20 06:40 Seg Neutrophils % 56.8 % (42-78) 03/13/20 06:40 PT 13.9 SEC (11.4-15.4) 03/11/20 06:03 INR 1.05 03/11/20 06:03 D-Dimer 0.33 ug/mL (0.00-0.50) 03/11/20 04:20 Sodium 138.5 mmol/L (137-145) 03/13/20 06:40 Potassium 4.3 mmol/L (3.6-5.0) 03/13/20 06:40 Chloride 104 mmol/L (98-107) 03/13/20 06:40 Carbon Dioxide 28 mmol/L (22-30) 03/13/20 06:40 Anion Gap 7 (5-19) 03/13/20 06:40 BUN 16 mg/dL (7-20) 03/13/20 06:40 Creatinine 0.85 mg/dL (0.52-1.25) 03/13/20 06:40 Est GFR ( Amer) > 60 (>60) 03/13/20 06:40 Est GFR (MDRD) Non-Af > 60 (>60) 03/13/20 06:40 Glucose 119 mg/dL (75-110) H 03/13/20 06:40 POC Glucose 111 mg/dL (70-110) H 03/13/20 11:50 Hemoglobin A1c % 7.2 % (4.7-6.0) H 03/12/20 05:40 Calcium 9.1 mg/dL (8.4-10.2) 03/13/20 06:40 Phosphorus 4.5 mg/dL (2.5-4.5) 03/12/20 05:40 Magnesium 2.2 mg/dL (1.6-2.3) 03/12/20 05:40 Total Bilirubin 0.6 mg/dL (0.2-1.3) 03/11/20 04:20 Direct Bilirubin 0.3 mg/dL (0.0-0.4) 03/11/20 04:20 Neonat Total Bilirubin Not Reportable 03/11/20 04:20 Neonat Direct Bilirubin Not Reportable 03/11/20 04:20 Neonat Indirect Bili Not Reportable 03/11/20 04:20 AST 23 U/L (17-59) 03/11/20 04:20 ALT 16 U/L (<50) 03/11/20 04:20 Alkaline Phosphatase 50 U/L (38-126) 03/11/20 04:20 Creatine Kinase 89 U/L (55-170) 03/11/20 04:20 CK-MB (CK-2) 0.72 ng/mL (<4.55) 03/11/20 04:20 Troponin I < 0.012 ng/mL 03/12/20 00:14 NT-Pro-B Natriuret Pep 44 pg/mL (<125) 03/11/20 04:20 Total Protein 7.5 g/dL (6.3-8.2) 03/11/20 04:20 Albumin 4.1 g/dL (3.5-5.0) 03/11/20 04:20 Triglycerides 170 mg/dL (<150) H 03/12/20 05:40 Cholesterol 200.81 mg/dL (0-200) H 03/12/20 05:40 LDL Cholesterol Direct 125 mg/dL (<100) H 03/12/20 05:40 VLDL Cholesterol 34.0 mg/dL (10-31) H 03/12/20 05:40 HDL Cholesterol 32 mg/dL (>40) L 03/12/20 05:40 TSH 1.15 uIU/mL (0.47-4.68) 03/12/20 05:40 03/11/20 03/11/20 03/11/20 04:20 04:20 07:45 CK-MB (CK-2) 0.72 Troponin I < 0.012 < 0.012 NT-Pro-B Natriuret Pep 44 03/11/20 03/12/20 18:35 00:14 CK-MB (CK-2) Troponin I < 0.012 < 0.012 NT-Pro-B Natriuret Pep Impressions: Chest X-Ray 03/11/20 04:06 IMPRESSION: Enlarged cardiac silhouette. Mild congestive changes.. Plan Plan of Treatment: Follow with PCP Vegan diet Time Spent: Greater than 30 Minutes Stroke Is this a Stroke Patient?: No Acute Heart Failure Is this a Heart Failure Patient?: No
== END 2020-03-13 13:40 | disposition home or self-care (01) ==
LOC: EDBD → ER 04:05 → EH 12:01 → 3S 17:49
PROVIDERS: ADMIT Internal Medicine; ATTEND Internal Medicine
DX: R07.89 Other chest pain (principal); R06.09 Other forms of dyspnea; E11.9 Type 2 diabetes mellitus without complications; I10 Essential (primary) hypertension; E78.5 Hyperlipidemia, unspecified; E66.01 Morbid (severe) obesity due to excess calories; F43.10 Post-traumatic stress disorder, unspecified; G44.40 Drug-induced headache, not elsewhere classified, not intractable; T46.3X5A Adverse effect of coronary vasodilators, initial encounter; Y92.009 Unspecified place in unspecified non-institutional (private) residence as the place of occurrence of the external cause; Z98.84 Bariatric surgery status; Z90.49 Acquired absence of other specified parts of digestive tract; Z79.84 Long term (current) use of oral hypoglycemic drugs; Z79.899 Other long term (current) drug therapy
CPT/HCPCS: 99285; 36415 ×3; 82553; 82962 ×2; 82550; 83735 ×2; 84100; 84443; 85025 ×3; 85610; 80048 ×2; 80053; 84484 ×2; 83036; 85379; 80061; 83880; 93017; 71045; 78452; 94660 ×3; 94640; G0378 ×3; A9500; J2785; J1650; J7613; Q9969; J3490 ×2

== ENCOUNTER 2020-05-31 20:26 | Emergency (ER) | payer OTHER ==
[2020-05-31] MEDS ORDERED: NORMAL SALINE 500 ML IV ONE (21:30)
[2020-05-31] MEDS ORDERED: ONDANSETRON HCL INJ/PF 4 MG/2 ML SDV IV ONE (21:31)
[2020-05-31] MEDS ORDERED: MORPHINE SULFATE 10 MG/ML INJ IV ONE (21:31)
--- NOTE | 2020-05-31 21:32 | ER Document Report ---
ED Medical Screen (RME) - General Chief Complaint: Abdominal Pain Stated Complaint: ABDOMINAL PAIN Time Seen by Provider: 05/31/20 21:20 Primary Care Provider: [facility] [Primary Care Provider] - Follow up as needed Mode of Arrival: Wheelchair Information source: Patient Notes: Patient is a 59-year-old male comes in with abdominal pain. Patient states he started is progressively gotten worse to light. States that he has a history of small bowel obstruction years ago he had a resection done he states it feels similar to that as well. He is denying any vomiting 4. He denies any diarrhea. He does state that he be evaluated today. See Dr. Powell for pathology. He also states that he bought some Pepto-Bismol for the has not relieved his discomfort. Pain himself repeatedly as well contact EMS to come to the room. He also has a past history for cholecystectomy as well as a gastric sleeve he is a [id number] diabetic denies any. Physical examination shows him to be a well-nourished well-developed 59-year-old male who appears uncomfortable but no apparent distress. Cardiovascular regular rate and rhythm without any murmurs at this time. Bilateral breath sounds decreased throughout no rhonchi rales or wheeze heard. Abdomen in the sitting position patient explains moderate tenderness in the upper right knee upper quadrants as well as some periumbilical tenderness as well. I have greeted and performed a rapid initial assessment of this patient. A comprehensive ED assessment and evaluation of the patient, analysis of test results and completion of the medical decision making process will be conducted by additional ED providers. Dictation of this chart was performed using voice recognition software; therefore, there may be some unintended grammatical errors. - Related Data Allergies/Adverse Reactions: No Known Allergies Allergy (Unverified 03/11/20 06:04) Past Medical History - Past Medical History Cardiac Medical History: Reports: Hx Hypercholesterolemia, Hx Hypertension Endocrine Medical History: Reports: Hx Diabetes Mellitus Type 2 Psychiatric Medical History: Reports: Hx Depression, Hx Post Traumatic Stress Disorder Past Surgical History: Reports: Hx Abdominal Surgery - SBO, Hx Cholecystectomy, Hx Gastric Bypass Surgery - Sleeve, Hx Orthopedic Surgery - Left achilles, right ankle, Hx Testicular Surgery - left Physical Exam - Vital signs Vitals: Temp Pulse Resp BP Pulse Ox 98.5 F 73 20 144/85 H 95 05/31/20 21:23 05/31/20 21:23 05/31/20 21:23 05/31/20 21:23 05/31/20 21:23 Course - Vital Signs Vital signs: Temp Pulse Resp BP Pulse Ox 98.5 F 73 20 144/85 H 95 05/31/20 21:23 05/31/20 21:23 05/31/20 21:23 05/31/20 21:23 05/31/20 21:23 Doctor's Discharge - Discharge [facility] [[facility]] - Follow up as needed
--- NOTE | 2020-05-31 22:20 | RADIOLOGY REPORT (SQ) ---
EXAM DESCRIPTION: Site: CT ABD/PELVIS NO ORAL OR IV RP: CT ABDOMEN PELVIS WITHOUT IV CONTRAST CLINICAL HISTORY: 59 years Male; Obstruction; TECHNIQUE: CT of the abdomen and pelvis without intravenous contrast. All CT scans at this facility use dose modulation, iterative reconstruction, and/or weight based dosing when appropriate to reduce radiation dose to as low as reasonably achievable. COMPARISON: None. FINDINGS: Abdomen: Stomach: Staple line is noted. No distention or adjacent edema. Liver:No focal lesions. No intrahepatic ductal distention. Gallbladder: Surgically absent Pancreas:Within normal limits Spleen:Within normal limits Right kidney: Exophytic 3 cm upper pole cyst. No calculi or hydronephrosis. Left kidney:No hydronephrosis. No renal or ureteral calculi. Adrenal glands: 1.6 cm fat density nodule, consistent with adenoma. No follow-up imaging indicated. Left adrenal is normal. Vascular structures:No aortic aneurysm. Pelvis: Small bowel:No significant distention. Appendix:Within normal limits Colon:No distention or acute pericolonic edema. No free intraperitoneal fluid or air. Bones: No acute bone findings. Bladder: Unremarkable. No pelvic mass or adenopathy. Note that evaluation of the bowel and solid organs is somewhat limited due to lack of intravenous and oral contrast. IMPRESSION: 1. No acute findings 2. No bowel obstruction, perforation, or abscess. 3. Chronic findings as described.
[2020-05-31 23:18] LABS: ABSOLUTE BASOPHILS # (AUTO) 0.1 10^3/uL (0.0-0.2); ABSOLUTE EOSINOPHILS # (AUTO) 0.2 10^3/uL (0.0-0.6); ABSOLUTE LYMPHOCYTES (AUTO) 1.4 10^3/uL (0.5-4.7); ABSOLUTE MONOCYTES (AUTO) 0.5 10^3/uL (0.1-1.4); ABSOLUTE NEUT (AUTO) 9.4 10^3/uL (1.7-8.2); BASOPHILS % (AUTO) 0.5 % (0-2); EOSINOPHILS % (AUTO) 1.4 % (0-6); HEMATOCRIT 46.4 % (37.9-51.0); HEMOGLOBIN 14.8 g/dL (13.5-17.0); LYMPHOCYTES % (AUTO) 12.1 % (13-45); MEAN CORPUSCULAR HEMOGLOBIN 25.4 pg (27.0-33.4); MEAN CORPUSCULAR HGB CONC 31.8 g/dL (32.0-36.0); MEAN CORPUSCULAR VOLUME 80 fl (80-97); MONOCYTES % (AUTO) 4.6 % (3-13); PLATELET COUNT 421 10^3/uL (150-450); RED BLOOD COUNT 5.81 10^6/uL (4.35-5.55); RED CELL DISTRIBUTION WIDTH 15.8 % (11.5-14.0); SEGMENTED NEUTROPHILS % (AUTO) 81.4 % (42-78); TOTAL CELLS COUNTED % (AUTO) 100 %; WHITE BLOOD COUNT 11.5 10^3/uL (4.0-10.5)
[2020-05-31 23:36] LABS: ALBUMIN 4.5 g/dL (3.5-5.0); ALKALINE PHOSPHATASE 73 U/L (38-126); ANION GAP 9 (5-19); ASPARTATE AMINO TRANSFERASE 20 U/L (17-59); BILIRUBIN,DIRECT 0.1 mg/dL (0.0-0.4); BILIRUBIN,TOTAL 0.6 mg/dL (0.2-1.3); BLOOD UREA NITROGEN 17 mg/dL (7-20); CALCIUM 9.9 mg/dL (8.4-10.2); CARBON DIOXIDE 29 mmol/L (22-30); CHLORIDE 101 mmol/L (98-107); GLUCOSE 141 mg/dL (75-110); POTASSIUM 4.7 mmol/L (3.6-5.0); TOTAL PROTEIN 8.1 g/dL (6.3-8.2)
[2020-06-01] MEDS ORDERED: ONDANSETRON HCL INJ/PF 4 MG/2 ML SDV IV ONE (02:30)
[2020-06-01] MEDS ORDERED: ONDANSETRON HCL INJ/PF 4 MG/2 ML SDV ONE (02:31)
[2020-06-01] MEDS ORDERED: MORPHINE SULFATE 10 MG/ML INJ IV ONE (03:00)
[2020-06-01] MEDS ORDERED: MAG HYDROX/AL HYDROX/SIMETH SUSP 30 ML UDCUP PO ONE (03:23)
[2020-06-01] MEDS ORDERED: LIDOCAINE 2% VISCOUS SOLN 15 ML UDCUP PO ONE (03:23)
[2020-06-01] MEDS ORDERED: METOCLOPRAMIDE HCL ORAL SOLN 10 MG/10 ML UDCUP PO ONE (03:24)
--- NOTE | 2020-06-01 03:29 | ER Document Report ---
ED General - General Chief Complaint: Abdominal Pain Stated Complaint: ABDOMINAL PAIN Time Seen by Provider: 05/31/20 21:20 Primary Care Provider: LOW GONZALEZ [Primary Care Provider] - Follow up as needed Mode of Arrival: Wheelchair - [facility] Context: Time:319 Chief Complaint: [epigastric pain ] [59-year-old male presents complaining of epigastric pain since eating a double quarter pound with cheese at lunch yesterday. ] History obtained from [patient and patient's significant other] Symptoms began:[After eating] Onset: [Gradual] Timing: Gradual [ ] Quality: [Sharp] Intensity: [4] Location: [Epigastric] Radiation: [Denies] [The pain does not migrate to a new location.] Aggravating factors: Eating Relieving factors: [none] [Denies] SOB [Denies] nausea [Denies] vomiting [Denies] sweats [Denies] fever [Denies] cough [Denies] calf or leg swelling or pain - Related Data Allergies/Adverse Reactions: No Known Allergies Allergy (Unverified 03/11/20 06:04) Past Medical History - General Information source: Patient - Social History Smoking Status: Never Smoker Frequency of alcohol use: None Drug Abuse: None Family History: Reviewed & Not Pertinent, Malignancy Patient has homicidal ideation: No - Past Medical History Cardiac Medical History: Reports: Hx Hypercholesterolemia, Hx Hypertension Endocrine Medical History: Reports: Hx Diabetes Mellitus Type 2 Psychiatric Medical History: Reports: Hx Depression, Hx Post Traumatic Stress Disorder Past Surgical History: Reports: Hx Abdominal Surgery - SBO, Hx Cholecystectomy, Hx Gastric Bypass Surgery - Sleeve, Hx Orthopedic Surgery - Left achilles, right ankle, Hx Testicular Surgery - left Review of Systems - Review of Systems Notes: Review of systems as below unless otherwise stated in HPI. CONSTITUTIONAL [No] fever, [No] chills. EYES [No] eye pain. ENT [No] URI symptoms, [No] sore throat, [No] ear pain. CARDIOVASCULAR [No] chest pain, [No] palpitations, [No] edema. RESPIRATORY [No] Cough, [No] SOB, [No] wheezing. GASTROINTESTINAL Positive abdominal pain, [No] nausea, [No] Diarrhea, [No] Vomiting, [No] constipation, [No] melena, [No] rectal bleeding. GENITOURINARY [No] dysuria, [No] urinary frequency, [No] hematuria, [No] urinary urgency MUSCULOSKELETAL [No] Back pain. SKIN [No] Rash. NEUROLOGIC [No] Headache, [No] recent seizures, [No] paralysis,[No] parathesias. ENDOCRINE [No] polyuria. HEMO/LYMPATIC [No] easy brusing PSYCHIATRIC [No] depression. Physical Exam - Vital signs Vitals: Temp Pulse Resp BP Pulse Ox 98.5 F 73 20 144/85 H 95 05/31/20 21:23 05/31/20 21:23 05/31/20 21:23 05/31/20 21:23 05/31/20 21:23 - Notes Notes: CONSTITUTIONAL [Vital signs reviewed, BMI noted. Patient appears comfortable, Alert and oriented X 3, Normal stature.] HEAD [Atraumatic, Normocephalic.] EYES [Eyes are normal to inspection, No discharge from eyes, Extraocular muscles intact, Sclera are normal, Conjunctiva are normal.] ENT [External ears normal to inspection, Nose examination normal, Mouth normal to in spection.] NECK [Normal ROM, No jugular venous distention, No meningeal signs, ] RESPIRATORY CHEST [Chest is nontender, Breath sounds normal, No respiratory distress.] CARDIOVASCULAR [RRR, No murmurs, Normal S1 S2, No rub, No gallop.] ABDOMEN [Abdomen is tender to palpation in the epigastric region, No pulsatile masses, No other masses, Bowel sounds normal, No distension, No peritoneal signs, No hernias.] BACK [There is no CVA Tenderness, There is no tenderness to palpation, Normal inspection.] UPPER EXTREMITY [Inspection normal, No cyanosis, No clubbing, No edema, LOWER EXTREMITY [Inspection normal, No cyanosis, No clubbing, No edema, No calf tenderness, NEURO [No focal motor deficits, No focal sensory deficits, Speech normal.] SKIN [Skin is warm, Skin is dry, Skin is normal color.] LYMPHATIC [No adenopathy in neck.] PSYCHIATRIC [Normal affect. ] Course - Re-evaluation Re-evalutation: 06/01/20 04:26 Patient states his symptoms have resolved after GI cocktail. Results of ED MSE discussed with patient and patient's significant other. All questions were answered prior to discharge. Emergency signs and symptoms, reasons to return to the emergency department discussed with patient and patient's significant other. 06/01/20 04:27 Patient is requesting mag citrate to take home with him for constipation. - Vital Signs Vital signs: Temp Pulse Resp BP Pulse Ox 98.8 F 79 16 146/77 H 100 06/01/20 03:49 06/01/20 03:49 06/01/20 03:49 06/01/20 03:49 06/01/20 03:49 - Laboratory Results Result Diagrams: 05/31/20 23:05 05/31/20 23:05 Laboratory Results Interpreted: 05/31/20 05/31/20 06/01/20 23:05 23:05 02:40 WBC 11.5 H RBC 5.81 H MCH 25.4 L MCHC 31.8 L RDW 15.8 H Lymph % (Auto) 12.1 L Absolute Neuts (auto) 9.4 H Seg Neutrophils % 81.4 H Glucose 141 H Urine Protein 30 H Urine Urobilinogen 2.0 H Critical Laboratory Results Reviewed: No Critical Results Attending or Supervising Physician who Reviewed Labs: DANIELLE OCONNOR IV - Radiology Results Critical Radiology Results Reviewed: No Critical Results Attending or Supervising Physician who Reviewed Radiology: DANIELLE OCONNOR IV Discharge - Discharge Clinical Impression: Acute abdominal pain Condition: Stable Disposition: HOME, SELF-CARE Instructions: Abdominal Pain ([facility]) Additional Instructions: Return to the Emergency Department without delay if any worse. HOME CARE INSTRUCTIONS & INFORMATION: Thank you for choosing us for your medical needs. We hope you're satisfied with the care you received. After you leave, you must properly care for your problem and, at the same time, observe its progress. Any condition can change. Some illnesses can change rapidly over hours or days. If your condition worsens, return to the Emergency Department or see your physician promptly. ABOUT YOUR X-RAYS AND EKG'S: If you had an EKG or X-rays taken, they have been read by the Emergency Physician. The X-rays and EKG's will also be read by a Radiologist or [employer] within 24 hours. If discrepancies are noted, you will be notified by telephone. Please be certain the ED has a correct telephone number & address where you can be reached. Also, realize that some fractures or abnormalities do not show up on initial X-rays. If your symptoms continue, see your physician. ABOUT YOUR LABORATORY TEST: If you had laboratory tests, the results have been reviewed by the Emergency Physician. Some test results (for example cultures) may not be available for several days. You will be contacted if any test result shows you need additional treatment. Please be certain the ED has a correct telephone number and address where you can be reached. ABOUT YOUR MEDICATIONS: You will receive instructions on how to take your medicine on the prescription label you receive. Additional information may be provided by the Pharmacy. If you have questions afterwards, call the ED for clarification or further instructions. Some prescribed medications may cause drowsiness. Do not perform tasks such as driving a car or operating machinery without consulting your Pharmacist. If you feel you need a refill of pain medication, your condition will need re-evaluation. Please do not call for a refill of any medication. ABOUT YOUR SIGNATURE: Signature of this document acknowledges to followin. Understanding that you received emergency treatment and that you may be released before al medical problems are known or treated. Please be certain the ED has a correct phone number & address where you can be reached. 2. Acknowledgement that you will arrange for follow-up care as recommended. 3. Authorization for the Emergency Physician to provide information to your follow-up Physician in order to maximize your care. AT ANY TIME, IF YOUR SYMPTOMS CHANGE SIGNIFICANTLY OR WORSEN OR YOU DEVELOP NEW SYMPTOMS, RETURN TO THE EMERGENCY DEPARTMENT IMMEDIATELY FOR RE-EVALUATION. OUR GOAL IS TO PROVIDE EXCELLENT MEDICAL CARE! WE HOPE THAT WE HAVE MET YOUR EXPECTATIONS DURING YOUR EMERGENCY DEPARTMENT VISIT AND THAT YOU FEEL YOU HAVE RECEIVED EXCELLENT CARE! [facility]errals: [facility] [Primary Care Provider] - Follow up as needed
[2020-06-01 03:37] LABS: APPEARANCE,URINE SLIGHTLY-CLOUDY; BILIRUBIN,URINE NEGATIVE (NEGATIVE); COLOR,URINE YELLOW; GLUCOSE, URINE NEGATIVE (NEGATIVE); KETONES,URINE NEGATIVE (NEGATIVE); LEUKOCYTE ESTERASE,URINE NEGATIVE (NEGATIVE); NITRITE,URINE NEGATIVE (NEGATIVE); PROTEIN,URINE 30 mg/dL (NEGATIVE)
[2020-06-01] MEDS ORDERED: MAGNESIUM CITRATE 296 ML BOTTLE PO ONE (04:28)
[2020-06-01 04:35] VITALS: BP 145/75
== END 2020-06-01 04:35 | disposition home or self-care (01) ==
LOC: ER 20:26
DX: R10.13 Epigastric pain (principal); E78.00 Pure hypercholesterolemia, unspecified; I10 Essential (primary) hypertension; E11.9 Type 2 diabetes mellitus without complications; Z98.84 Bariatric surgery status
CPT/HCPCS: 99285; 96361; 96374; 96375; 36415; 87086; 83605; 83690; 85025; 80053; 81001; 74176; J3490 ×2; J2270; J2405; J7040

== ENCOUNTER 2020-06-04 22:56 | Observation (INO) | payer OTHER ==
[2020-06-05] MEDS ORDERED: ONDANSETRON 4 MG TAB.RAPDIS PO ONE (00:40)
[2020-06-05] MEDS ORDERED: NORMAL SALINE 1000 ML 1,000 ML IV ONE (00:40)
--- NOTE | 2020-06-05 00:42 | ER Document Report ---
ED Medical Screen (RME) - General Chief Complaint: Abdominal Pain Stated Complaint: ABDOMINAL PAIN/CONSTIPATION/BLOATING Time Seen by Provider: 06/05/20 00:35 Primary Care Provider: LOW GONZALEZ [Primary Care Provider] - Follow up as needed Mode of Arrival: Ambulatory Information source: Patient Notes: 59-year-old male presented to ED for complaint of abdominal pain severe cramping nausea feels like he is dehydrated and his car passed out. He states the cramping started on Wednesday after he ate some he started having cramping came into the emergency room they did blood work and CAT scan and told that he did not have a blockage. He states they did give him magnesium citrate which he went home and he had a large stool. He states that Wednesday and today it i s started cramping again he is having severe pain he feels like he is dehydrated. He states he cannot eat or drink due to the pain and discomfort. I have ordered him some Zofran ODT's of blood urine and IV fluids when he does get to her room. He states he does have a history of a gastric sleeve in the past as well as gallbladder removal bowel obstruction with bowel surgery removal of left testicle and orthopedic surgeries. He states he does not smoke he does drink wine weekly but does not use any illicit drugs. I have greeted and performed a rapid initial assessment of this patient. A comprehensive ED assessment and evaluation of the patient, analysis of test results and completion of medical decision making process will be conducted by an additional ED providers. - Related Data Allergies/Adverse Reactions: No Known Allergies Allergy (Unverified 03/11/20 06:04) Home Medications: trazadone, metformin, prazosin, amilodipine, atorvastatin. Past Medical History - Past Medical History Cardiac Medical History: Reports: Hx Hypercholesterolemia, Hx Hypertension Endocrine Medical History: Reports: Hx Diabetes Mellitus Type 2 Psychiatric Medical History: Reports: Hx Depression, Hx Post Traumatic Stress Disorder Past Surgical History: Reports: Hx Abdominal Surgery - SBO, Hx Cholecystectomy, Hx Gastric Bypass Surgery - Sleeve, Hx Orthopedic Surgery - Left achilles, right ankle, Hx Testicular Surgery - left Physical Exam - Vital signs Vitals: Temp Pulse Resp BP Pulse Ox 98.2 F 92 16 187/92 H 98 06/04/20 22:59 06/04/20 22:59 06/04/20 22:59 06/04/20 22:59 06/04/20 22:59 Course - Vital Signs Vital signs: Temp Pulse Resp BP Pulse Ox 98.2 F 92 16 187/92 H 98 06/04/20 22:59 06/04/20 22:59 06/04/20 22:59 06/04/20 22:59 06/04/20 22:59 Doctor's Discharge - Discharge Referrals: [facility] [[facility]] - Follow up as needed
[2020-06-05 00:58] LABS: AMORPHOUS SEDIMENT,URINE 1+ /HPF; APPEARANCE,URINE TURBID; BILIRUBIN,URINE NEGATIVE (NEGATIVE); COLOR,URINE YELLOW; GLUCOSE, URINE NEGATIVE (NEGATIVE); KETONES,URINE NEGATIVE (NEGATIVE); LEUKOCYTE ESTERASE,URINE NEGATIVE (NEGATIVE); NITRITE,URINE NEGATIVE (NEGATIVE); PROTEIN,URINE 30 mg/dL (NEGATIVE); URINE SPECIFIC GRAVITY 1.031
[2020-06-05 01:09] LABS: ABSOLUTE EOSINOPHILS # (AUTO) 0.2 10^3/uL (0.0-0.6); ABSOLUTE LYMPHOCYTES (AUTO) 1.6 10^3/uL (0.5-4.7); ABSOLUTE MONOCYTES (AUTO) 0.8 10^3/uL (0.1-1.4); BASOPHILS % (AUTO) 0.3 % (0-2); EOSINOPHILS % (AUTO) 1.5 % (0-6); HEMATOCRIT 42.2 % (37.9-51.0); HEMOGLOBIN 13.7 g/dL (13.5-17.0); LYMPHOCYTES % (AUTO) 13.6 % (13-45); MEAN CORPUSCULAR HGB CONC 32.4 g/dL (32.0-36.0); MEAN CORPUSCULAR VOLUME 80 fl (80-97); MONOCYTES % (AUTO) 6.6 % (3-13); PLATELET COUNT 425 10^3/uL (150-450); RED BLOOD COUNT 5.26 10^6/uL (4.35-5.55); RED CELL DISTRIBUTION WIDTH 15.3 % (11.5-14.0); TOTAL CELLS COUNTED % (AUTO) 100 %; WHITE BLOOD COUNT 11.5 10^3/uL (4.0-10.5)
[2020-06-05 01:34] LABS: ALBUMIN 4.1 g/dL (3.5-5.0); ALKALINE PHOSPHATASE 66 U/L (38-126); ANION GAP 8 (5-19); ASPARTATE AMINO TRANSFERASE 22 U/L (17-59); BILIRUBIN,DIRECT 0.2 mg/dL (0.0-0.4); BILIRUBIN,TOTAL 0.7 mg/dL (0.2-1.3); BLOOD UREA NITROGEN 17 mg/dL (7-20); CALCIUM 9.5 mg/dL (8.4-10.2); CARBON DIOXIDE 28 mmol/L (22-30); CHLORIDE 103 mmol/L (98-107); GLUCOSE 159 mg/dL (75-110); TOTAL PROTEIN 7.4 g/dL (6.3-8.2)
[2020-06-05] MEDS ORDERED: METOCLOPRAMIDE HCL INJ/PF 10 MG/2 ML SDV IV ONE (04:39)
[2020-06-05] MEDS ORDERED: MORPHINE SULFATE 10 MG/ML INJ IV ONE (04:40)
--- NOTE | 2020-06-05 05:47 | ER Document Report ---
ED Medical Screen (RME) - General Chief Complaint: Abdominal Pain Stated Complaint: ABDOMINAL PAIN/CONSTIPATION/BLOATING Time Seen by Provider: 06/05/20 00:35 Primary Care Provider: CARLOS,LOW [Primary Care Provider] - Follow up as needed Mode of Arrival: Ambulatory Notes: 59-year-old male with history of sleeve gastrectomy, cholecystectomy, SBO with lysis of adhesions, presents with approximately 5 days of new constipation with abdominal pain worse in bilateral lower quadrants. Was seen in ED few days ago and had CT without IV or oral contrast which did not show blockage and patient was discharged and he had large stool but then after that has not had any additional stool and now has started vomiting in the ED. Patient denies fever, obstipation - Related Data Allergies/Adverse Reactions: No Known Allergies Allergy (Unverified 03/11/20 06:04) Home Medications: trazadone, metformin, prazosin, amilodipine, atorvastatin. Past Medical History - General Information source: Patient, [facility] Records - Past Medical History Cardiac Medical History: Reports: Hx Hypercholesterolemia, Hx Hypertension Endocrine Medical History: Reports: Hx Diabetes Mellitus Type 2 Psychiatric Medical History: Reports: Hx Depression, Hx Post Traumatic Stress Disorder Past Surgical History: Reports: Hx Abdominal Surgery - SBO, Hx Cholecystectomy, Hx Gastric Bypass Surgery - Sleeve, Hx Orthopedic Surgery - Left achilles, right ankle, Hx Testicular Surgery - left Review of Systems - Review of Systems Notes: No melena, no bright red blood per rectum Physical Exam - Vital signs Vitals: Temp Pulse Resp BP Pulse Ox 98.2 F 92 16 187/92 H 98 06/04/20 22:59 06/04/20 22:59 06/04/20 22:59 06/04/20 22:59 06/04/20 22:59 - Notes Notes: Mild diffuse abdominal tenderness worse in bilateral lower quadrants, no rebound, no guarding, well-appearing Course - Re-evaluation Re-evalutation: 06/05/20 05:47 I have greeted and performed a rapid initial assessment of this patient. A comprehensive ED assessment and evaluation of the patient, analysis of test results and completion of medical decision making process will be conducted by additional ED providers. - Vital Signs Vital signs: Temp Pulse Resp BP Pulse Ox 98.2 F 92 18 156/80 H 96 06/04/20 22:59 06/04/20 22:59 06/05/20 04:01 06/05/20 04:01 06/05/20 04:01 - Laboratory Results Result Diagrams: 06/05/20 00:53 06/05/20 00:53 Laboratory Results Interpreted: 06/04/20 06/05/20 06/05/20 23:36 00:53 00:53 WBC 11.5 H MCH 26.0 L RDW 15.3 H Absolute Neuts (auto) 9.0 H Glucose 159 H Urine Protein 30 H Urine Blood SMALL H Urine Urobilinogen 2.0 H Doctor's Discharge - Discharge Referrals: [facility] [[facility]] - Follow up as needed
--- NOTE | 2020-06-05 06:58 | ER Document Report ---
ED General - General Chief Complaint: Abdominal Pain Stated Complaint: ABDOMINAL PAIN/CONSTIPATION/BLOATING Time Seen by Provider: 06/05/20 00:35 Primary Care Provider: CARLOS,LOW [Primary Care Provider] - Follow up as needed Mode of Arrival: Ambulatory Notes: Patient is a 59-year-old male with history of sleeve gastrectomy, and multiple abdominal surgeries and history of SBO in the past that presents to the emergency department for chief complaint of of abdominal pain, nausea and vomiting. Patient was seen recently 5 days ago in the emergency department, had noncontrast CT at that time which was negative. Patient reports that he is feeling better now, after receiving treatment earlier in his ED course. But he states that after leaving from his previous ED stay he had a large bowel movement, but has not had one since then he was concerned that maybe he has another blockage. Denies any fevers, chills, night sweats, chest pain, shortness of breath or difficulty breathing. At this time he rates his abdominal pain as a 2 out of 10, and states that his nausea is much improved as well. Denies any other complaints at this time. - Related Data Allergies/Adverse Reactions: No Known Allergies Allergy (Unverified 03/11/20 06:04) Home Medications: trazadone, metformin, prazosin, amilodipine, atorvastatin. Past Medical History - General Information source: Patient, [facility] Records - Social History Smoking Status: Never Smoker Family History: Reviewed & Not Pertinent, Malignancy - Past Medical History Cardiac Medical History: Reports: Hx Hypercholesterolemia, Hx Hypertension Endocrine Medical History: Reports: Hx Diabetes Mellitus Type 2 Psychiatric Medical History: Reports: Hx Depression, Hx Post Traumatic Stress Disorder Past Surgical History: Reports: Hx Abdominal Surgery - SBO, Hx Cholecystectomy, Hx Gastric Bypass Surgery - Sleeve, Hx Orthopedic Surgery - Left achilles, right ankle, Hx Testicular Surgery - left Review of Systems - Review of Systems Notes: REVIEW OF SYSTEMS: CONSTITUTIONAL : No fever No chills No diaphoresis No recent illness EENT: No vision changes No congestion No sore throat CARDIOVASCULAR: No chest pain No palpitations No shortness of breath RESPIRATORY: No shortness of breath No cough No difficulty breathing GASTROINTESTINAL: Positive for abdominal pain, nausea and vomiting No diarrhea GENITOURINARY: No dysuria No hematuria No difficulty urinating MUSCULOSKELETAL: No back pain No leg pain No arm pain SKIN: No rashes No lesions LYMPHATIC: No swollen, enlarged glands. NEUROLOGICAL: No lightheadedness No headache No weakness No paresthesias PSYCHIATRIC: No anxiety No depression Physical Exam - Vital signs Vitals: Temp Pulse Resp BP Pulse Ox 98.2 F 92 16 187/92 H 98 06/04/20 22:59 06/04/20 22:59 12 22:59 06/04/20 22:59 06/04/20 22:59 - Notes Notes: PHYSICAL EXAMINATION: Vital signs reviewed, nursing notes reviewed. GENERAL: Well-appearing, well-nourished and in no acute distress. HEAD: Atraumatic, normocephalic. EYES: Eyes appear normal, extraocular movements intact, sclera anicteric, conjunctiva are normal. ENT: nares patent, oropharynx clear without exudates. Moist mucous membranes. NECK: Normal range of motion, supple without lymphadenopathy LUNGS: Breath sounds clear to auscultation bilaterally and equal. No wheezes rales or rhonchi. HEART: Regular rate and rhythm without murmurs ABDOMEN: Soft, obese, mild generalized tenderness with palpation, normoactive bowel sounds. No rebound, guarding, or rigidity. No masses appreciated. EXTREMITIES: Nontender, good range of motion, 1+ bilateral lower extremity edema. Chronic per patient NEUROLOGICAL: No focal neurological deficits. Moves all extremities spontaneously Motor and sensory grossly intact on exam. PSYCH: Normal mood, normal affect. SKIN: Warm, Dry, normal turgor, no rashes or lesions noted on exposed skin Course - Re-evaluation Re-evalutation: Patient seen and examined, vital signs reviewed, on exam patient is some mild generalized abdominal tenderness, vital signs stable, patient was worked up for concern for possible obstruction, given patient has had history of this in the past, blood work and CT imaging was obtained, and was consistent with a partial small bowel obstruction, patient was given IV fluids, antiemetics and analgesics. Patient somewhat improved, however still uncomfortable. At this point case was discussed with the hospitalist, who requested I discussed with surgery, did discuss the case with the general surgeon on-call, who was agreeable to observation, and will see the patient in consult. Discussed case again with the hospitalist to accept the patient under service for further evaluation and management patient understood and agreed with this plan of care. - Vital Signs Vital signs: Temp Pulse Resp BP Pulse Ox 98.7 F 92 15 165/80 H 96 06/05/20 05:47 06/04/20 22:59 06/05/20 08:01 06/05/20 08:01 06/05/20 08:01 - Laboratory Results Result Diagrams: 06/05/20 00:53 06/05/20 00:53 Laboratory Results Interpreted: 06/04/20 06/05/20 06/05/20 23:36 00:53 00:53 WBC 11.5 H MCH 26.0 L RDW 15.3 H Absolute Neuts (auto) 9.0 H Glucose 159 H Urine Protein 30 H Urine Blood SMALL H Urine Urobilinogen 2.0 H Critical Laboratory Results Reviewed: No Critical Results - Radiology Results Critical Radiology Results Reviewed: No Critical Results Discharge - Discharge Clinical Impression: Partial small bowel obstruction Condition: Stable Disposition: ADMITTED OBSERVATION Admitting Provider: Toni (Hospitalist) Unit Admitted: Medical Floor [facility]errals: [facility] [[facility]] - Follow up as needed
[2020-06-05] MEDS ORDERED: HYDROMORPHONE HCL INJ/PF 2 MG/ML AMPULE IV ONE (08:29)
--- NOTE | 2020-06-05 08:49 | RADIOLOGY REPORT (SQ) ---
EXAM DESCRIPTION: CT ABD/PELVIS WITH IV ORAL IMAGES COMPLETED DATE/TIME: 06/05/2020 8:30 am REASON FOR STUDY: constipation vomiting, sleeve sbo jose hx COMPARISON: 05/31/2020 TECHNIQUE: CT scan of the abdomen and pelvis performed using helical scanning technique with dynamic intravenous contrast injection. No oral contrast. Images reviewed with lung, soft tissue, and bone windows. Reconstructed coronal and sagittal MPR images reviewed. Delayed images for evaluation of the urinary system also acquired. All images stored on PACS. All CT scanners at this facility use dose modulation, iterative reconstruction, and/or weight based d osing when appropriate to reduce radiation dose to as low as reasonably achievable (ALARA). [facility]: Dose Right [facility]: CareDose [facility]: Dose Right [facility]: Teradose 4D [facility]: [employer] CONTRAST TYPE AND DOSE: contrast/concentration: Isovue 350.00 mmol/ml; Total Contrast Delivered: 100 .0 ml; Total Saline Delivered: 61.1 ml RENAL FUNCTION: BUN 17, creatinine 0.89 RADIATION DOSE: CT Rad equipment meets quality standard of care and radiation dose reduction techniq ues were employed. CTDIvol: 19.2 - 21.1 mGy. DLP: 2437 mGy-cm.. LIMITATIONS: None. FINDINGS: LOWER CHEST: No significant findings. No nodules or infiltrates. LIVER: Normal size. No masses. No dilated ducts. SPLEEN: Normal size. No focal lesions. PANCREAS: No masses. No significant calcifications. No adjacent inflammation or peripancreatic fluid collections. Pancreatic duct not dilated. GALLBLADDER: Surgically absent. ADRENAL GLANDS: No significant masses or asymmetry. RIGHT KIDNEY AND URETER: No solid masses. Right renal cyst is again noted. No significant calcific ations. No hydronephrosis or hydroureter. LEFT KIDNEY AND URETER: No solid masses. No significant calcifications. No hydronephrosis or hydr oureter. AORTA AND VESSELS: No aneurysm. No dissection. Renal arteries, SMA, celiac without stenosis. RETROPERITONEUM: No retroperitoneal adenopathy, hemorrhage or masses. BOWEL AND PERITONEAL CAVITY: Postsurgical changes involving the stomach. Scattered air-fluid levels in mildly distended proximal and mid small bowel. Distal small bowel is decompressed. There are no focal inflammatory changes identified. APPENDIX: Normal. PELVIS: No mass. No free fluid. Normal bladder. ABDOMINAL WALL: No masses. No hernias. BONES: No significant or acute findings. OTHER: No other significant finding. IMPRESSION: Mild small-bowel distention with decompressed distal small bowel. Findings are suspicio us for partial small bowel obstruction. Possibly secondary to effusion. There are no focal inflamma tory change is identified at this time. No definite transition point. TECHNICAL DOCUMENTATION: JOB ID: [id number] Quality ID # [id number]: Final reports with documentation of one or more dose reduction techniques (e.g., Au tomated exposure control, adjustment of the mA and/or kV according to patient size, use of iterative reconstruction technique) 2010 [employer]- All Rights Reserved Reading location - IP/workstation name: [email or web address]
[2020-06-05] MEDS ORDERED: ACETAMINOPHEN 325 MG TABLET PO PRN (12:55)
[2020-06-05] MEDS ORDERED: ONDANSETRON HCL INJ/PF 4 MG/2 ML SDV IV PRN (12:55)
[2020-06-05] MEDS ORDERED: IPRATROPIUM/ALBUTEROL 0.5-2.5 MG/3 ML AMPUL NEB PRN (12:55)
[2020-06-05] MEDS ORDERED: GLUCAGON,HUMAN RECOMB 1 MG INJ SUBCUT PRN (12:55)
[2020-06-05] MEDS ORDERED: DEXTROSE 40% GEL 15 GM TUBE PO PRN ×2 (12:55)
[2020-06-05] MEDS ORDERED: DEXTROSE 50%-WATER 25 GM/50 ML DISP.SYRIN IV PRN ×2 (12:55)
[2020-06-05] MEDS ORDERED: DEXTROSE 5%-LACTATED RINGERS 1,000 ML IV PRN (12:55)
[2020-06-05] MEDS ORDERED: MAGNESIUM CITRATE 296 ML BOTTLE PO ONE (14:30)
[2020-06-05] MEDS: HEPARIN SOD (PORCINE) 5,000 UNIT/ML 1 ML VIAL SUBCUT SCH ×2 (15:04→22:14)
[2020-06-05] MEDS: DEXTROSE 5%-NORMAL SALINE 1,000 ML IV PRN ×2 (15:04→23:03)
[2020-06-05] MEDS: KETOROLAC TROMETHAMINE INJ/PF 30 MG/1 ML SDV IV SCH ×2 (16:14→22:14)
[2020-06-05] MEDS ORDERED: KETOROLAC TROMETHAMINE INJ/PF 30 MG/1 ML SDV IV SCH (18:00)
[2020-06-05] MEDS ORDERED: DOCUSATE SODIUM 100 MG/10 ML UDC PO SCH (18:00)
--- NOTE | 2020-06-05 18:50 | PDOC H&P ---
History of Present Illness Admission Date/PCP: 06/05/20 10:49 [facility] Patient complains of: abdominal pain History of Present Illness: MORENO KWONG JR is a 59 year old male, status post gastric sleeve bypass 2014, prior history of bowel obstruction 2004 status post exploratory laparotomy with reduction of obstruction no colectomy. History of hypertension, hyperlipidemia, diabetes who came in the ED due to abdominal pain. According to the patient his symptoms started after eating at [employer] when he developed crampy abdominal pain mainly in the epigastric area, constant, nonradiating, around 5 out of 10 pain scale. Abdominal pain persisted prompting consult at [facility] ED the next day. CT abdomen was done which did not show any obstruction. Patient was given a GI cocktail which relieved his symptoms and he was eventually discharged. Had a large bowel movement last Wednesday. This morning his abdominal pain returned now accompanied with bloating, nausea and vomiting. He denied any fever, no melena, no hematemesis. In the emergency room blood pressure was three 3/83, heart rate of 78, temperature of 97.5, O2 sat 97% on room air. CBC showed mild leukocytosis 11, normal hemoglobin. Metabolic panel was unremarkable. CT of the abdomen with IV and oral contrast showed mild small bowel distention with decompressed distal small bowel. Findings are suspicious for partial small bowel obstruction. There are no focal inflammatory changes. Dr. Rodriguez was consulted in the emergency room and patient was admitted to the floors for further evaluation and management. Past Medical History Cardiac Medical History: Reports: Hyperlipidema, Hypertension Pulmonary Medical History: Reports: None EENT Medical History: Reports: None Neurological Medical History: Reports: None Endocrine Medical History: Reports: Diabetes Mellitus Type 2 Renal/ Medical History: Reports: None Malignancy Medical History: Reports: None GI Medical History: Reports: Other - Status post gastric sleeve bypass 2014, bowel obstruction 2004 Psychiatric Medical History: Reports: Depression, Post Traumatic Stress Disorder Past Surgical History Past Surgical History: Reports: Cholecystectomy, Gastric Bypass Surgery - Sleeve, Orthopedic Surgery - Left achilles, right ankle Social History Information Source: Patient Lives with: Family Smoking Status: Never Smoker Electronic Cigarette use?: No Frequency of Alcohol Use: Social Hx Recreational Drug Use: No Drugs: None Hx Prescription Drug Abuse: No - Advance Directive Resuscitation Status: Full Code Family History Family History: Reviewed & Not Pertinent, Malignancy Parental Family History Reviewed: No Children Family History Reviewed: No Sibling(s) Family History Reviewed.: No Medication/Allergy Home Medications: Amlodipine Besylate [Norvasc 5 mg Tablet] 5 mg PO DAILY 03/11/20 Prazosin HCl [Minipress] 4 mg PO QHS 03/11/20 Metformin HCl 500 mg PO BID 06/05/20 Multivitamin [Multiple Vitamins] 1 tab PO DAILY 06/05/20 Trazodone HCl 100 mg PO QHS 06/05/20 Allergies/Adverse Reactions: No Known Allergies Allergy (Unverified 03/11/20 06:04) Review of Systems Constitutional: ABSENT: fever(s), headache(s), night sweats, weakness Eyes: ABSENT: visual disturbances Ears: ABSENT: hearing changes Gastrointestinal: PRESENT: abdominal pain, bloating. ABSENT: coffee ground emesis Physical Exam Vital Signs: Temp Pulse Resp BP Pulse Ox 97.5 F 78 19 123/83 97 06/05/20 16:00 06/05/20 16:00 06/05/20 16:00 06/05/20 16:00 06/05/20 16:00 Intake & Output 06/04/20 06/05/20 06/06/20 06:59 06:59 06:59 Intake Total 1000 Output Total 650 Balance 1000 -650 Weight 172.9 kg 172.5 kg General appearance: PRESENT: no acute distress, cooperative Head exam: PRESENT: atraumatic, normocephalic Eye exam: PRESENT: EOMI, PERRLA Mouth exam: PRESENT: moist Neck exam: PRESENT: full ROM Respiratory exam: PRESENT: clear to auscultation danny, symmetrical, unlabored Cardiovascular exam: PRESENT: RRR, +S1, +S2 Pulses: PRESENT: +2 pedal pulses bilateral GI/Abdominal exam: PRESENT: distended, normal bowel sounds, soft. ABSENT: rebound, tenderness Extremities exam: PRESENT: full ROM Musculoskeletal exam: PRESENT: full ROM Neurological exam: PRESENT: alert, awake, oriented to person, oriented to place, oriented to time, oriented to situation Psychiatric exam: PRESENT: normal mood Skin exam: PRESENT: normal color Results Laboratory Results: 06/05/20 00:53 06/05/20 00:53 06/04/20 06/05/20 06/05/20 23:36 00:53 00:53 WBC 11.5 H RBC 5.26 Hgb 13.7 Hct 42.2 MCV 80 MCH 26.0 L MCHC 32.4 RDW 15.3 H Plt Count 425 Seg Neutrophils % 78.0 Sodium 139.0 Potassium 4.0 Chloride 103 Carbon Dioxide 28 Anion Gap 8 BUN 17 Creatinine 0.89 Est GFR ( Amer) > 60 Glucose 159 H Calcium 9.5 Total Bilirubin 0.7 AST 22 Alkaline Phosphatase 66 Total Protein 7.4 Albumin 4.1 Lipase 34.9 Urine Color YELLOW Urine Appearance TURBID Urine pH 5.0 Ur Specific Wade 1.031 Urine Protein 30 H Urine Glucose (UA) NEGATIVE Urine Ketones NEGATIVE Urine Blood SMALL H Urine Nitrite NEGATIVE Ur Leukocyte Esterase NEGATIVE Impressions: Abdomen/Pelvis CT 06/05/20 00:00 IMPRESSION: Mild small-bowel distention with decompressed distal small bowel. Findings are suspicious for partial small bowel obstruction. Possibly secondary to effusion. There are no focal inflammatory change is identified at this time. No definite transition point. Assessment and Plan - Diagnosis (1) Partial small bowel obstruction Is this a current diagnosis for this admission?: Yes Plan: -Patient has a history of gastric sleeve bypass 2014 and prior bowel obstruction came in due to abdominal pain, nausea vomiting, bloating. -Leukocytosis - +ve distended abdomen no rebound -CT abdomen showed partial small bowel obstruction -We will put on n.p.o. -1 dose of mag citrate -Zofran and Protonix -Surgery following repeat KUB tomorrow (2) HLD (hyperlipidemia) Qualifiers: Hyperlipidemia type: other hyperlipidemia Qualified Code(s): E78.49 - Other hyperlipidemia; E78.4 - Other hyperlipidemia Is this a current diagnosis for this admission?: Yes Plan: - on atorvastatin - will hold for now due to NPO status (3) HTN (hypertension) Qualifiers: Hypertension type: unspecified Qualified Code(s): I10 - Essential (primary) hypertension Is this a current diagnosis for this admission?: Yes Plan: - on amlodipine. will resume once out of NPO (4) Morbid obesity Is this a current diagnosis for this admission?: Yes Plan: - BMI 50 - s/p gastric sleeve bypass 2014 (5) PTSD (post-traumatic stress disorder) Is this a current diagnosis for this admission?: Yes Plan: - on trazodone at home (6) T2DM (type 2 diabetes mellitus) Qualifiers: Diabetes mellitus emt intermediate insulin use: without fpc use Diabetes mellitus complication status: without complication Qualified Code(s): E11.9 - Type 2 diabetes mellitus without complications Is this a current diagnosis for this admission?: Yes Plan: - on metformin at home - Time Time Spent with patient: 25-34 minutes Medications reviewed and adjusted accordingly: Yes Anticipated Discharge Disposition: Home, Self Care Anticipated Discharge Timeframe: within 48 hours
[2020-06-05] MEDS: INSULIN LISPRO 100 UNIT/ML 3 ML VIAL SUBCUT SCH (19:07)
[2020-06-05] MEDS: PANTOPRAZOLE SODIUM 40 MG VIAL IV SCH (19:08)
[2020-06-06] MEDS: INSULIN LISPRO 100 UNIT/ML 3 ML VIAL SUBCUT SCH ×5 (00:24→21:45)
[2020-06-06] MEDS: KETOROLAC TROMETHAMINE INJ/PF 30 MG/1 ML SDV IV SCH ×4 (03:54→20:28)
[2020-06-06 06:03] LABS: ABSOLUTE BASOPHILS # (AUTO) 0.1 10^3/uL (0.0-0.2); ABSOLUTE EOSINOPHILS # (AUTO) 0.3 10^3/uL (0.0-0.6); ABSOLUTE LYMPHOCYTES (AUTO) 2.8 10^3/uL (0.5-4.7); ABSOLUTE MONOCYTES (AUTO) 0.7 10^3/uL (0.1-1.4); ABSOLUTE NEUT (AUTO) 3.9 10^3/uL (1.7-8.2); BASOPHILS % (AUTO) 0.7 % (0-2); EOSINOPHILS % (AUTO) 4.1 % (0-6); HEMATOCRIT 36.8 % (37.9-51.0); HEMOGLOBIN 12.1 g/dL (13.5-17.0); LYMPHOCYTES % (AUTO) 36.1 % (13-45); MEAN CORPUSCULAR HEMOGLOBIN 25.8 pg (27.0-33.4); MEAN CORPUSCULAR VOLUME 78 fl (80-97); MONOCYTES % (AUTO) 8.4 % (3-13); PLATELET COUNT 339 10^3/uL (150-450); RED BLOOD COUNT 4.71 10^6/uL (4.35-5.55); RED CELL DISTRIBUTION WIDTH 15.3 % (11.5-14.0); SEGMENTED NEUTROPHILS % (AUTO) 50.7 % (42-78); TOTAL CELLS COUNTED % (AUTO) 100 %; WHITE BLOOD COUNT 7.8 10^3/uL (4.0-10.5)
[2020-06-06] MEDS: HEPARIN SOD (PORCINE) 5,000 UNIT/ML 1 ML VIAL SUBCUT SCH ×3 (06:17→21:49)
[2020-06-06 06:26] LABS: ALBUMIN 3.2 g/dL (3.5-5.0); ALKALINE PHOSPHATASE 45 U/L (38-126); ANION GAP 7 (5-19); ASPARTATE AMINO TRANSFERASE 21 U/L (17-59); BILIRUBIN,DIRECT 0.2 mg/dL (0.0-0.4); BILIRUBIN,TOTAL 0.6 mg/dL (0.2-1.3); BLOOD UREA NITROGEN 14 mg/dL (7-20); CALCIUM 8.9 mg/dL (8.4-10.2); CARBON DIOXIDE 28 mmol/L (22-30); CHLORIDE 105 mmol/L (98-107); GLUCOSE 126 mg/dL (75-110); POTASSIUM 4.3 mmol/L (3.6-5.0); TOTAL PROTEIN 6.1 g/dL (6.3-8.2)
--- NOTE | 2020-06-06 06:38 | PDOC CONSULTATION ---
Consultation Consult Date: 06/06/20 Provider Consulted: SURGICAL SURGICALIST MD Consult reason:: nausea, vomiting, abdominal pain History of Present Illness Admission Date/PCP: 06/05/20 10:49 [facility] History of Present Illness: MORENO KWONG JR is a 59 year old male seen in consultation at the request of the hospitalist service. The patient was admitted to hospital with a questionable small bowel obstruction. The patient has a 3-day history of abdominal cramping, nausea, and vomiting. His last bowel movement was on Wednesday (4 days ago). The patient has continued to pass flatus throughout this timeframe. His last episode of flatus was last night. He vomited yesterday in the ER. He has not vomited since. The patient reports that his abdominal pain is cramping in nature. It is moderate in severity. He experiences it all throughout the abdominal cavity. It waxes and wanes. He denies any chest pain, shortness of breath, fevers, chills, sick contacts, dizziness, blurry vision, orthostasis, headache. Past Medical History Cardiac Medical History: Reports: Hyperlipidema, Hypertension Pulmonary Medical History: Reports: None EENT Medical History: Reports: None Neurological Medical History: Reports: None Endocrine Medical History: Reports: Diabetes Mellitus Type 2 Renal/ Medical History: Reports: None Malignancy Medical History: Reports: None GI Medical History: Reports: Other - Status post gastric sleeve bypass 2014, bowel obstruction 2004 Psychiatric Medical History: Reports: Depression, Post Traumatic Stress Disorder Past Surgical History Past Surgical History: Reports: Cholecystectomy - open, Gastric Bypass Surgery - Sleeve, Orthopedic Surgery - Left achilles, right ankle, Other - laparotomy for bowel obstruction Social History Lives with: Family Smoking Status: Never Smoker Electronic Cigarette use?: No Frequency of Alcohol Use: Social Hx Recreational Drug Use: No Drugs: None Hx Prescription Drug Abuse: No - Advance Directive Resuscitation Status: Full Code Family History Family History: Reviewed & Not Pertinent, Malignancy Parental Family History Reviewed: Yes Children Family History Reviewed: Yes Sibling(s) Family History Reviewed.: Yes Medication/Allergy Home Medications: Amlodipine Besylate [Norvasc 5 mg Tablet] 5 mg PO DAILY 03/11/20 Prazosin HCl [Minipress] 4 mg PO QHS 03/11/20 Metformin HCl 500 mg PO BID 06/05/20 Multivitamin [Multiple Vitamins] 1 tab PO DAILY 06/05/20 Trazodone HCl 100 mg PO QHS 06/05/20 Allergies/Adverse Reactions: No Known Allergies Allergy (Unverified 03/11/20 06:04) Review of Systems Constitutional: ABSENT: anorexia, chills, fatigue, fever(s), headache(s) Eyes: ABSENT: visual disturbances Ears: ABSENT: hearing changes Nose, Mouth, and Throat: ABSENT: sore throat Cardiovascular: ABSENT: chest pain Respiratory: ABSENT: cough, dyspnea Gastrointestinal: PRESENT: abdominal pain, bloating, constipation, nausea, vomiting. ABSENT: hematemesis, hematochezia, melena Genitourinary: ABSENT: dysuria Musculoskeletal: ABSENT: back pain Integumentary: ABSENT: pruritus, rash Neurological: ABSENT: confusion, convulsions, dizziness Psychiatric: ABSENT: anxiety Endocrine: ABSENT: cold intolerance, heat intolerance Hematologic/Lymphatic: ABSENT: easy bleeding, easy bruising Physical Exam Vital Signs: Temp Pulse Resp BP Pulse Ox 98.4 F 79 17 123/73 98 06/05/20 23:11 06/05/20 23:11 06/05/20 23:11 06/05/20 23:11 06/05/20 23:11 Intake & Output 06/04/20 06/05/20 06/06/20 06:59 06:59 06:59 Intake Total 1000 998 Output Total 650 Balance 1000 348 Weight 172.9 kg 175.722 kg General appearance: PRESENT: morbidly obese Head exam: PRESENT: atraumatic, normocephalic Eye exam: PRESENT: EOMI, PERRLA. ABSENT: scleral icterus Mouth exam: PRESENT: moist, neck supple Neck exam: ABSENT: meningismus, tenderness, thyromegaly Respiratory exam: PRESENT: unlabored. ABSENT: tachypnea, wheezes Cardiovascular exam: ABSENT: tachycardia Vascular exam: PRESENT: normal capillary refill GI/Abdominal exam: PRESENT: soft. ABSENT: firm, guarding, rebound, rigid, tenderness Rectal exam: PRESENT: deferred Extremities exam: ABSENT: clubbing Musculoskeletal exam: ABSENT: deformity Neurological exam: PRESENT: alert, awake, oriented to person, oriented to place Psychiatric exam: ABSENT: agitated, anxious, depressed Focused psych exam: ABSENT: delusional Skin exam: ABSENT: cyanosis, erythema, jaundice Results Laboratory Results: 06/06/20 05:18 06/06/20 05:18 WBC 7.8 RBC 4.71 Hgb 12.1 L Hct 36.8 L MCV 78 L MCH 25.8 L MCHC 33.0 RDW 15.3 H Plt Count 339 Seg Neutrophils % 50.7 Impressions: Abdomen/Pelvis CT 06/05/20 00:00 IMPRESSION: Mild small-bowel distention with decompressed distal small bowel. Findings are suspicious for partial small bowel obstruction. Possibly secondary to effusion. There are no focal inflammatory change is identified at this time. No definite transition point. Assessment & Plan - Diagnosis (1) Acute abdominal pain Is this a current diagnosis for this admission?: Yes - Plan Summary Plan Summary: 59-year-old male with abdominal pain, nausea, and vomiting. The patient has a CT scan that I have reviewed. He has oral contrast within the small bowel, the contrast did not progress through to the colon. He does however have air and stool within the colon. This would make a small bowel obstruction less likely (but still possible). Differential diagnosis includes partial small bowel obstruction versus gastroenteritis. Repeat x-rays today in an effort to reevaluate contrast movement. The patient continues to report flatus, and denies any current vomiting. He still has crampy abdominal pain intermittently. The patient does not have evidence of an acute abdomen on exam. His lab work is normal. Continue with symptomatic treatment for now. Depending on the patient's clinical course it is conceivable that he may require surgery, although I feel this is unlikely. Surgery will follow with you.
[2020-06-06] MEDS: PANTOPRAZOLE SODIUM 40 MG VIAL IV SCH (10:38)
--- NOTE | 2020-06-06 12:33 | RADIOLOGY REPORT (SQ) ---
EXAM DESCRIPTION: KUB/ABDOMEN (SINGLE VIEW) IMAGES COMPLETED DATE/TIME: 06/06/2020 8:53 am REASON FOR STUDY: abdominal pain COMPARISON: None. NUMBER OF VIEWS: One view. TECHNIQUE: Supine radiographic image of the abdomen acquired. LIMITATIONS: None. FINDINGS: BOWEL GAS PATTERN: There are mildly dilated loops of proximal small bowel. There is some gas in the colon. CALCIFICATIONS: No suspicious calcifications. SOFT TISSUES: No gross mass or suggestion of organomegaly. HARDWARE: None in the abdomen. BONES: No acute fracture. No worrisome bone lesions. OTHER: No other significant finding. IMPRESSION: Cannot exclude partial small bowel obstruction. TECHNICAL DOCUMENTATION: JOB ID: [id number] 2010 [employer]- All Rights Reserved Reading location - IP/workstation name: [email or web address]
--- NOTE | 2020-06-06 14:38 | RADIOLOGY REPORT (SQ) ---
EXAM DESCRIPTION: SMALL BOWEL SERIES IMAGES COMPLETED DATE/TIME: 06/06/2020 1:49 pm REASON FOR STUDY: must use Gastrografin, N/V, Abd Pain COMPARISON: 06/05/2020 TECHNIQUE: Multiple radiographs were obtained of the abdomen and pelvis after the uneventful oral ad ministration of 240 mL Gastrografin. LIMITATIONS: None. FINDINGS: Immediate imaging demonstrates contrast propagated to the level of the jejunum. Incidenta l note is made of continued urinary excretion of previously administered intravenous contrast. 1 hour 15 minutes post imaging demonstrates continued propagation of enteric contrast to the level of the ileum noting multiple prominent loops of small bowel without obstruction. 2 hour 15 minutes post imaging demonstrates propagation of enteric contrast to the level of the rectu m. The surrounding bony and soft tissue structures are unremarkable/ unchanged in the short study interv al. IMPRESSION: Prompt propagation of enteric contrast through mildly prominent loops of small bowel wit hout evidence of obstruction. TECHNICAL DOCUMENTATION: JOB ID: [id number] 2010 [employer]- All Rights Reserved Reading location - IP/workstation name: [email or web address]
[2020-06-06] MEDS ORDERED: ACETAMINOPHEN 325 MG TABLET NG PRN (15:23)
[2020-06-06] MEDS ORDERED: PHARMACY COMMUNICATION ORDER MC NR (15:30)
--- NOTE | 2020-06-06 15:58 | PDOC PROGRESS REPORT ---
Subjective Date:: 06/06/20 Subjective:: MORENO KWONG JR is a 59 year old male, status post gastric sleeve bypass 2014, p caitr history of bowel obstruction 2004 status post exploratory laparotomy with reduction of obstruction no colectomy. History of hypertension, hyperlipidemia, diabetes who came in the ED due to abdominal pain. According to the patient his symptoms started after eating at [employer] when he developed crampy abdominal pain mainly in the epigastric area, constant, nonradiating, around 5 out of 10 pain scale. Abdominal pain persisted prompting consult at [place] [facility] the next day. CT abdomen was done which did not show any obstruction. Patient was given a GI cocktail which relieved his symptoms and he was eventually discharged. Had a large bowel movement last Wednesday. This morning his abdominal pain returned now accompanied with bloating, nausea and vomiting. He denied any fever, no melena, no hematemesis. In the emergency room blood pressure was three 3/83, heart rate of 78, temperature of 97.5, O2 sat 97% on room air. CBC showed mild leukocytosis 11, normal hemoglobin. Metabolic panel was unremarkable. CT of the abdomen with IV and oral contrast showed mild small bowel distention with decompressed distal small bowel. Findings are suspicious for partial small bowel obstruction. There are no focal inflammatory changes. Dr. Rodriguez was consulted in the emergency room and patient was admitted to the floors for further evaluation and management. D2 hospital stay Patient was seen and examined at bedside. He had a bowel movement yesterday mainly air and some minimal lose stools. Still having crampy abdominal pain. Repeat small bowel x-ray showed prominent propagation of enteric contrast through mildly prominent loops of small bowel without evidence of obstruction. NG tube placed to help decompress. Dr. Rodriguez following Reason For Visit: PARTIAL SMALL BOWEL OBSTRUCTION Physical Exam Vital Signs: Temp Pulse Resp BP Pulse Ox 98.2 F 69 17 149/80 H 99 06/06/20 11:40 06/06/20 11:40 06/06/20 11:40 06/06/20 11:40 06/06/20 11:40 Intake & Output 06/05/20 06/06/20 06/07/20 06:59 06:59 06:59 Intake Total 1000 998 Output Total 650 Balance 1000 348 Weight 172.9 kg 175.722 kg General appearance: PRESENT: no acute distress, cooperative Head exam: PRESENT: atraumatic, normocephalic Eye exam: PRESENT: EOMI, PERRLA Mouth exam: PRESENT: moist Respiratory exam: PRESENT: clear to auscultation danny, symmetrical, unlabored Cardiovascular exam: PRESENT: RRR, +S1, +S2 GI/Abdominal exam: PRESENT: distended, normal bowel sounds, soft. ABSENT: rebound Extremities exam: PRESENT: full ROM Musculoskeletal exam: PRESENT: full ROM Neurological exam: PRESENT: alert, awake, oriented to person, oriented to place, oriented to time, oriented to situation Psychiatric exam: PRESENT: normal mood Skin exam: PRESENT: normal color Results Laboratory Results: 06/06/20 05:18 06/06/20 05:18 06/06/20 06/06/20 05:18 05:18 WBC 7.8 RBC 4.71 Hgb 12.1 L Hct 36.8 L MCV 78 L MCH 25.8 L MCHC 33.0 RDW 15.3 H Plt Count 339 Seg Neutrophils % 50.7 Sodium 140.1 Potassium 4.3 Chloride 105 Carbon Dioxide 28 Anion Gap 7 BUN 14 Creatinine 0.89 Est GFR ( Amer) > 60 Glucose 126 H Calcium 8.9 Total Bilirubin 0.6 AST 21 Alkaline Phosphatase 45 Total Protein 6.1 L Albumin 3.2 L Impressions: Abdomen/Pelvis CT 06/05/20 00:00 IMPRESSION: Mild small-bowel distention with decompressed distal small bowel. Findings are suspicious for partial small bowel obstruction. Possibly secondary to effusion. There are no focal inflammatory change is identified at this time. No definite transition point. KUB X-Ray 06/06/20 06:00 IMPRESSION: Cannot exclude partial small bowel obstruction. Small Bowel X-Ray 06/06/20 10:56 IMPRESSION: Prompt propagation of enteric contrast through mildly prominent loops of small bowel without evidence of obstruction. Assessment and Plan - Diagnosis (1) Partial small bowel obstruction Is this a current diagnosis for this admission?: Yes Plan: -Patient has a history of gastric sleeve bypass 2014 and prior bowel obstruction came in due to abdominal pain, nausea vomiting, bloating. -Leukocytosis - +ve distended abdomen no rebound -CT abdomen showed partial small bowel obstruction -on n.p.o. -1 dose of mag citrate -Zofran and Protonix -Surgery following. small bowel x-ray prompt propagation of enteric contrast show mildly prominent loops of small bowel without evidence of obstruction. (2) HLD (hyperlipidemia) Qualifiers: Hyperlipidemia type: other hyperlipidemia Qualified Code(s): E78.49 - Other hyperlipidemia; E78.4 - Other hyperlipidemia Is this a current diagnosis for this admission?: Yes Plan: - on atorvastatin - will hold for now due to NPO status (3) HTN (hypertension) Qualifiers: Hypertension type: unspecified Qualified Code(s): I10 - Essential (primary) hypertension Is this a current diagnosis for this admission?: Yes Plan: - on amlodipine. will resume once out of NPO (4) Morbid obesity Is this a current diagnosis for this admission?: Yes Plan: - BMI 50 - s/p gastric sleeve bypass 2014 (5) PTSD (post-traumatic stress disorder) Is this a current diagnosis for this admission?: Yes Plan: - on trazodone at home (6) T2DM (type 2 diabetes mellitus) Qualifiers: Diabetes mellitus usp insulin use: without exterminator helper use Diabetes mellitus complication status: without complication Qualified Code(s): E11.9 - Type 2 diabetes mellitus without complications Is this a current diagnosis for this admission?: Yes Plan: - on metformin at home - Time Time Spent with patient: 15-24 minutes Medications reviewed and adjusted accordingly: Yes Anticipated Discharge Disposition: Home, Self Care Anticipated Discharge Timeframe: within 48 hours
--- NOTE | 2020-06-06 17:40 | Progress Note ---
Provider Note Provider Note: Patient underwent a small bowel series today with Gastrografin. Patient started having significant bowel movements after the Gastrografin small bowel series. There is no report of small bowel obstruction on the small bowel series. Patient seen this evening we will start a soft diet. If patient tolerates soft diet he can be discharged home tomorrow morning. Surgery will sign off at this time Please reconsult if necessary.
[2020-06-06] MEDS: METOCLOPRAMIDE HCL INJ/PF 10 MG/2 ML SDV IV SCH (18:08)
[2020-06-06] MEDS: DEXTROSE 5%-NORMAL SALINE 1,000 ML IV PRN (19:01)
[2020-06-06] MEDS ORDERED: PSEUDOEPHEDRINE HCL 30 MG TABLET PO PRN (22:46)
[2020-06-07] MEDS: METOCLOPRAMIDE HCL INJ/PF 10 MG/2 ML SDV IV SCH ×2 (00:05→06:42)
[2020-06-07] MEDS ORDERED: TEMAZEPAM 7.5 MG CAPSULE PO PRN (00:35)
[2020-06-07] MEDS ORDERED: TRAZODONE HCL 50 MG TABLET PO SCH (01:00)
[2020-06-07] MEDS: KETOROLAC TROMETHAMINE INJ/PF 30 MG/1 ML SDV IV SCH ×2 (02:47→09:38)
[2020-06-07] MEDS: DEXTROSE 5%-NORMAL SALINE 1,000 ML IV PRN (03:11)
[2020-06-07] MEDS: HEPARIN SOD (PORCINE) 5,000 UNIT/ML 1 ML VIAL SUBCUT SCH (06:42)
[2020-06-07 07:43] LABS: ABSOLUTE BASOPHILS # (AUTO) 0.1 10^3/uL (0.0-0.2); ABSOLUTE EOSINOPHILS # (AUTO) 0.3 10^3/uL (0.0-0.6); ABSOLUTE LYMPHOCYTES (AUTO) 2.4 10^3/uL (0.5-4.7); ABSOLUTE MONOCYTES (AUTO) 0.5 10^3/uL (0.1-1.4); ABSOLUTE NEUT (AUTO) 3.9 10^3/uL (1.7-8.2); BASOPHILS % (AUTO) 1.1 % (0-2); EOSINOPHILS % (AUTO) 4.2 % (0-6); HEMATOCRIT 36.6 % (37.9-51.0); HEMOGLOBIN 12.3 g/dL (13.5-17.0); LYMPHOCYTES % (AUTO) 33.6 % (13-45); MEAN CORPUSCULAR HEMOGLOBIN 26.2 pg (27.0-33.4); MEAN CORPUSCULAR HGB CONC 33.4 g/dL (32.0-36.0); MEAN CORPUSCULAR VOLUME 78 fl (80-97); PLATELET COUNT 360 10^3/uL (150-450); RED BLOOD COUNT 4.68 10^6/uL (4.35-5.55); RED CELL DISTRIBUTION WIDTH 15.4 % (11.5-14.0); SEGMENTED NEUTROPHILS % (AUTO) 54.1 % (42-78); TOTAL CELLS COUNTED % (AUTO) 100 %; WHITE BLOOD COUNT 7.2 10^3/uL (4.0-10.5)
[2020-06-07 08:05] LABS: ALBUMIN 3.3 g/dL (3.5-5.0); ALKALINE PHOSPHATASE 49 U/L (38-126); ANION GAP 5 (5-19); ASPARTATE AMINO TRANSFERASE 18 U/L (17-59); BILIRUBIN,DIRECT 0.1 mg/dL (0.0-0.4); BILIRUBIN,TOTAL 0.5 mg/dL (0.2-1.3); BLOOD UREA NITROGEN 11 mg/dL (7-20); CALCIUM 8.8 mg/dL (8.4-10.2); CARBON DIOXIDE 28 mmol/L (22-30); CHLORIDE 107 mmol/L (98-107); GLUCOSE 124 mg/dL (75-110); POTASSIUM 3.8 mmol/L (3.6-5.0); TOTAL PROTEIN 6.2 g/dL (6.3-8.2)
[2020-06-07] MEDS: INSULIN LISPRO 100 UNIT/ML 3 ML VIAL SUBCUT SCH ×2 (08:38→12:40)
--- NOTE | 2020-06-07 09:08 | RADIOLOGY REPORT (SQ) ---
EXAM DESCRIPTION: KUB/ABDOMEN (SINGLE VIEW) IMAGES COMPLETED DATE/TIME: 06/06/2020 10:32 pm REASON FOR STUDY: Check Placement of NG Tube COMPARISON: 06/06/2020 NUMBER OF VIEWS: One view. TECHNIQUE: Supine radiographic image of the abdomen acquired. LIMITATIONS: Limited field of view. FINDINGS: BOWEL GAS PATTERN: Limited visualization without demonstrated dilation. CALCIFICATIONS: No suspicious calcifications. SOFT TISSUES: No gross mass or suggestion of organomegaly. HARDWARE: Interval placement of an enteric tube with the tip and proximal port projecting subdiaphrag matically. BONES: No acute fracture. No worrisome bone lesions. OTHER: No other significant finding. IMPRESSION: Interval placement of an enteric tube demonstrating appropriate positioning without evid ence of complication. TECHNICAL DOCUMENTATION: JOB ID: [id number] 2010 [employer]- All Rights Reserved Reading location - IP/workstation name: [email or web address]
[2020-06-07] MEDS: PANTOPRAZOLE SODIUM 40 MG VIAL IV SCH (09:38)
[2020-06-07] MEDS ORDERED: AMLODIPINE BESYLATE 5 MG TABLET PO ONE (12:30)
[2020-06-07 12:41] VITALS: BP 150/100
--- NOTE | 2020-06-08 16:32 | PDOC DISCHARGE SUMMARY ---
Impression - Admit/DC Date/PCP Admission Date/Primary Care Provider: 06/05/20 10:[facility] Discharge Date: 06/07/20 - Discharge Diagnosis (1) Partial small bowel obstruction Is this a current diagnosis for this admission?: Yes (2) HLD (hyperlipidemia) Is this a current diagnosis for this admission?: Yes (3) HTN (hypertension) Is this a current diagnosis for this admission?: Yes (4) Morbid obesity Is this a current diagnosis for this admission?: Yes (5) PTSD (post-traumatic stress disorder) Is this a current diagnosis for this admission?: Yes (6) T2DM (type 2 diabetes mellitus) Is this a current diagnosis for this admission?: Yes - Assessment Summary: (1) Partial small bowel obstruction Is this a current diagnosis for this admission?: Yes Plan: -Patient has a history of gastric sleeve bypass 2014 and prior bowel obstruction came in due to abdominal pain, nausea vomiting, bloating. -Leukocytosis - +ve distended abdomen no rebound -CT abdomen showed partial small bowel obstruction -on n.p.o. -1 dose of mag citrate -Zofran and Protonix -Surgery following. small bowel x-ray prompt propagation of enteric contrast show mildly prominent loops of small bowel without evidence of obstruction. (2) HLD (hyperlipidemia) Qualifiers: Hyperlipidemia type: other hyperlipidemia Qualified Code(s): E78.49 - Other hyperlipidemia; E78.4 - Other hyperlipidemia Is this a current diagnosis for this admission?: Yes Plan: - on atorvastatin - will hold for now due to NPO status (3) HTN (hypertension) Qualifiers: Hypertension type: unspecified Qualified Code(s): I10 - Essential (primary) hypertension Is this a current diagnosis for this admission?: Yes Plan: - on amlodipine. will resume once out of NPO (4) Morbid obesity Is this a current diagnosis for this admission?: Yes Plan: - BMI 50 - s/p gastric sleeve bypass 2014 (5) PTSD (post-traumatic stress disorder) Is this a current diagnosis for this admission?: Yes Plan: - on trazodone at home (6) T2DM (type 2 diabetes mellitus) Qualifiers: Diabetes mellitus long term care phlebotomist insulin use: without nursing home use Diabetes mellitus complication status: without complication Qualified Code(s): E11.9 - Type 2 diabetes mellitus without complications Is this a current diagnosis for this admission?: Yes Plan: - on metformin at home - Additional Information Resuscitation Status: Full Code Discharge Diet: Cardiac, Other (Comments) Discharge Activity: Activity As Tolerated [facility]: [facility] [[facility]] - Follow up as needed Prescriptions: Sennosides/Docusate 8.6-50 mg [Senna Plus Tablet] 1 tab PO DAILY 30 Days #30 tablet Home Medications: Amlodipine Besylate [Norvasc 5 mg Tablet] 5 mg PO DAILY 03/11/20 Prazosin HCl [Minipress] 4 mg PO QHS 03/11/20 Metformin HCl 500 mg PO BID 06/05/20 Multivitamin [Multiple Vitamins] 1 tab PO DAILY 06/05/20 Trazodone HCl 100 mg PO QHS 06/05/20 Sennosides/Docusate 8.6-50 mg [Senna Plus Tablet] 1 tab PO DAILY 30 Days #30 tablet 06/07/20 History of Present Illiness History of Present Illness: MORENO KWONG JR is a 59 year old male, status post gastric sleeve bypass 2014, prior history of bowel obstruction 2004 status post exploratory laparotomy with reduction of obstruction no colectomy. History of hypertension, hyperlipidemia, diabetes who came in the ED due to abdominal pain. According to the patient his symptoms started after eating at [employer] when he developed crampy abdominal pain mainly in the epigastric area, constant, nonradiating, around 5 out of 10 pain scale. Abdominal pain persisted prompting consult at [place] [facility] the next day. CT abdomen was done which did not show any obstruction. Patient was given a GI cocktail which relieved his symptoms and he was eventually discharged. Had a large bowel movement last Wednesday. This morning his abdominal pain returned now accompanied with bloating, nausea and vomiting. He denied any fever, no melena, no hematemesis. In the emergency room blood pressure was three 3/83, heart rate of 78, temperature of 97.5, O2 sat 97% on room air. CBC showed mild leukocytosis 11, normal hemoglobin. Metabolic panel was unremarkable. CT of the abdomen with IV and oral contrast showed mild small bowel distention with decompressed distal small bowel. Findings are suspicious for partial small bowel obstruction. There are no focal inflammatory changes. Dr. Rodriguez was consulted in the emergency room and patient was admitted to the floors for further evaluation and management. Hospital Course Hospital Course: D2 hospital stay Patient was seen and examined at bedside. He had a bowel movement yesterday mainly air and some minimal lose stools. Still having crampy abdominal pain. Repeat small bowel x-ray showed prominent propagation of enteric contrast through mildly prominent loops of small bowel without evidence of obstruction. NG tube placed to help decompress. Dr. Rodriguez following Patient was eventually discharged on 06/07. His abdominal pain resolved, no vomiting and he was tolerating regular diet Physical Exam Vital Signs: Temp Pulse Resp BP Pulse Ox 97.9 F 79 20 150/100 H 100 06/07/20 11:53 06/07/20 11:53 06/07/20 11:53 06/07/20 11:53 06/07/20 11:53 Intake & Output 06/07/20 06/08/20 06/09/20 06:59 06:59 06:59 Intake Total 2260 1000 Balance 2260 1000 Weight 171.8 kg General appearance: PRESENT: no acute distress, cooperative Head exam: PRESENT: atraumatic, normocephalic Eye exam: PRESENT: EOMI, PERRLA Mouth exam: PRESENT: moist Respiratory exam: PRESENT: clear to auscultation danny, symmetrical, unlabored Cardiovascular exam: PRESENT: RRR, +S1, +S2 GI/Abdominal exam: PRESENT: normal bowel sounds, soft. ABSENT: rebound, tenderness Extremities exam: PRESENT: full ROM Musculoskeletal exam: PRESENT: full ROM Neurological exam: PRESENT: alert, awake, oriented to person, oriented to place, oriented to time, oriented to situation Psychiatric exam: PRESENT: normal mood Skin exam: PRESENT: normal color Results Laboratory Results: WBC 7.2 10^3/uL (4.0-10.5) 06/07/20 07:25 RBC 4.68 10^6/uL (4.35-5.55) 06/07/20 07:25 Hgb 12.3 g/dL (13.5-17.0) L 06/07/20 07:25 Hct 36.6 % (37.9-51.0) L 06/07/20 07:25 MCV 78 fl (80-97) L 06/07/20 07:25 MCH 26.2 pg (27.0-33.4) L 06/07/20 07:25 MCHC 33.4 g/dL (32.0-36.0) 06/07/20 07:25 RDW 15.4 % (11.5-14.0) H 06/07/20 07:25 Plt Count 360 10^3/uL (150-450) 06/07/20 07:25 Lymph % (Auto) 33.6 % (13-45) 06/07/20 07:25 [place] % (Auto) 7.0 % (3-13) 06/07/20 07:25 Eos % (Auto) 4.2 % (0-6) 06/07/20 07:25 Baso % (Auto) 1.1 % (0-2) 06/07/20 07:25 Absolute Neuts (auto) 3.9 10^3/uL (1.7-8.2) 06/07/20 07:25 Absolute Lymphs (auto) 2.4 10^3/uL (0.5-4.7) 06/07/20 07:25 Absolute Monos (auto) 0.5 10^3/uL (0.1-1.4) 06/07/20 07:25 Absolute Eos (auto) 0.3 10^3/uL (0.0-0.6) 06/07/20 07:25 Absolute Basos (auto) 0.1 10^3/uL (0.0-0.2) 06/07/20 07:25 Seg Neutrophils % 54.1 % (42-78) 06/07/20 07:25 Sodium 140.1 mmol/L (137-145) 06/07/20 07:25 Potassium 3.8 mmol/L (3.6-5.0) 06/07/20 07:25 Chloride 107 mmol/L (98-107) 06/07/20 07:25 Carbon Dioxide 28 mmol/L (22-30) 06/07/20 07:25 Anion Gap 5 (5-19) 06/07/20 07:25 BUN 11 mg/dL (7-20) 06/07/20 07:25 Creatinine 0.82 mg/dL (0.52-1.25) 06/07/20 07:25 Est GFR ( Amer) > 60 (>60) 06/07/20 07:25 Est GFR (MDRD) Non-Af > 60 (>60) 06/07/20 07:25 Glucose 124 mg/dL (75-110) H 06/07/20 07:25 POC Glucose 125 mg/dL (70-110) H 06/07/20 06:24 Calcium 8.8 mg/dL (8.4-10.2) 06/07/20 07:25 Total Bilirubin 0.5 mg/dL (0.2-1.3) 06/07/20 07:25 Direct Bilirubin 0.1 mg/dL (0.0-0.4) 06/07/20 07:25 Neonat Total Bilirubin Not Reportable 06/07/20 07:25 Neonat Direct Bilirubin Not Reportable 06/07/20 07:25 Neonat Indirect Bili Not Reportable 06/07/20 07:25 AST 18 U/L (17-59) 06/07/20 07:25 ALT 17 U/L (<50) 06/07/20 07:25 Alkaline Phosphatase 49 U/L (38-126) 06/07/20 07:25 Total Protein 6.2 g/dL (6.3-8.2) L 06/07/20 07:25 Albumin 3.3 g/dL (3.5-5.0) L 06/07/20 07:25 Lipase 34.9 U/L (23-300) 06/05/20 00:53 Urine Color YELLOW 06/04/20 23:36 Urine Appearance TURBID 06/04/20 23:36 Urine pH 5.0 (5.0-9.0) 06/04/20 23:36 Ur Specific [place] 1.031 06/04/20 23:36 Urine Protein 30 mg/dL (NEGATIVE) H 06/04/20 23:36 Urine Glucose (UA) NEGATIVE mg/dL (NEGATIVE) 06/04/20 23:36 Urine Ketones NEGATIVE mg/dL (NEGATIVE) 06/04/20 23:36 Urine Blood SMALL (NEGATIVE) H 06/04/20 23:36 Urine Nitrite NEGATIVE (NEGATIVE) 06/04/20 23:36 Urine Bilirubin NEGATIVE (NEGATIVE) 06/04/20 23:36 Urine Urobilinogen 2.0 mg/dL (<2.0) H 06/04/20 23:36 Ur Leukocyte Esterase NEGATIVE (NEGATIVE) 06/04/20 23:36 Urine Bacteria (Auto) 3+ /HPF 06/04/20 23:36 Amorphous Sediment Auto 1+ /HPF 06/04/20 23:36 Urine Mucus (Auto) MANY /LPF 06/04/20 23:36 Urine Yeast (Budding) PRESENT /HPF 06/04/20 23:36 Urine Ascorbic Acid NEGATIVE (NEGATIVE) 06/04/20 23:36 Influenza A (RT-PCR) NEGATIVE (NEGATIVE) 06/06/20 11:45 Influenza B (RT-PCR) NEGATIVE (NEGATIVE) 06/06/20 11:45 RSV (RT-PCR) NEGATIVE (NEGATIVE) 06/06/20 11:45 SARS-CoV-2 Rap RNA(RT-PCR) NEGATIVE (NEGATIVE) 06/06/20 11:45 Impressions: Abdomen/Pelvis CT 06/05/20 00:00 IMPRESSION: Mild small-bowel distention with decompressed distal small bowel. Findings are suspicious for partial small bowel obstruction. Possibly secondary to effusion. There are no focal inflammatory change is identified at this time. No definite transition point. KUB X-Ray 06/06/20 06:00 IMPRESSION: Cannot exclude partial small bowel obstruction. Small Bowel X-Ray 06/06/20 10:56 IMPRESSION: Prompt propagation of enteric contrast through mildly prominent loops of small bowel without evidence of obstruction. KUB X-Ray 06/06/20 15:17 IMPRESSION: Interval placement of an enteric tube demonstrating appropriate positioning without evidence of complication. Plan Plan of Treatment: - ff.up with PCP - avoid fatty foods - advised high fiber diet Stroke Is this a Stroke Patient?: No Acute Heart Failure Is this a Heart Failure Patient?: No
== END 2020-06-07 12:43 | disposition home or self-care (01) ==
LOC: ER 22:56 → EH 06-05 10:49 → 4W 06-05 12:47 → 4S 06-05 17:30
PROVIDERS: ADMIT Internal Medicine; ATTEND Internal Medicine
DX: K56.600 Partial intestinal obstruction, unspecified as to cause (principal); E78.49 Other hyperlipidemia; I10 Essential (primary) hypertension; E66.01 Morbid (severe) obesity due to excess calories; F43.10 Post-traumatic stress disorder, unspecified; E11.9 Type 2 diabetes mellitus without complications; R14.0 Abdominal distension (gaseous); R11.2 Nausea with vomiting, unspecified; R10.9 Unspecified abdominal pain; R14.3 Flatulence; K59.00 Constipation, unspecified; E78.5 Hyperlipidemia, unspecified; Z68.43 Body mass index [BMI] 50.0-59.9, adult; Z98.84 Bariatric surgery status; Z79.84 Long term (current) use of oral hypoglycemic drugs; Z79.899 Other long term (current) drug therapy; Z20.828 Contact with and (suspected) exposure to other viral communicable diseases
CPT/HCPCS: 99285; 96361; 96374; 96375; 36415 ×3; 87086; 82962 ×3; 83690; 85025 ×3; 0241U ×4; 80053 ×3; 81001; 74018; 74250; 74177; G0378 ×3; J1644 ×3; J3490; S0119; J1885 ×3; J2765 ×3; J2270; J1170; C9113 ×3; J7042 ×3; J7030; C9803